=== PATIENT | female | born 1945 | race Caucasian/White ===

== ENCOUNTER → 2016-04-30 | Outpatient (CLI) | payer MEDICARE, BC ==
--- NOTE | 2016-04-30 13:54 | Diagnostic Imaging Report ---
COMPARISON: None available. FINDINGS: This scan is considered normal according to World Health Organization guidelines. Please refer to the detailed Bone Density report faxed separately from this report. Right femur T score -0.2, left femur T score -0.3, AP spine T score 2. IMPRESSION: Normal bone mineralization. Dictated by: Dictated on workstation # [id number]
== END ==
LOC: RAD 12:52
PROVIDERS: ATTEND Family Medicine
DX: Z78.0 Asymptomatic menopausal state (principal); E83.52 Hypercalcemia
CPT/HCPCS: 77080

== ENCOUNTER → 2016-05-05 | Outpatient (CLI) | payer MEDICARE, BC ==
--- NOTE | 2016-05-05 18:58 | Diagnostic Imaging Report ---
INDICATION: Personal history of breast cancer. Digital mammography with computer-assisted detection is performed. Digital mammography with computer-assisted detection is performed. COMPARISON: 10/19/2013, 10/01/2010 Bilateral digital mammography with computer-assisted detection performed. Skin markers were placed at the lumpectomy site. The breasts are heterogeneous and mostly dense. Right breast: Stereotactic biopsy clip is present in the upper-outer right breast. Benign calcification is present with no mass or suspicious finding. Microcalcifications noted medially and superiorly have been stable since the prior exam. Left breast: No dominant mass, suspicious microcalcification, or other significant abnormality is identified. IMPRESSION: 1. Negative for malignancy. Follow-up mammography in one year is recommended. ACR BI-RADS Category 1: Negative Result letter will be mailed to the patient. Note: At least 10% of breast cancer is not imaged by mammography. Dictated by: Dictated on workstation # [id number]
== END ==
LOC: RAD 12:55
PROVIDERS: ATTEND Family Medicine
DX: Z85.3 Personal history of malignant neoplasm of breast (principal)

== ENCOUNTER → 2016-05-13 | Outpatient (CLI) | payer MEDICARE, BC | LOC: RAD 08:15 | PROVIDERS: ATTEND Internal Medicine Hematology & Oncology | DX: Z85.3 Personal history of malignant neoplasm of breast (principal); Z85.038 Personal history of other malignant neoplasm of large intestine; R94.8 Abnormal results of function studies of other organs and systems | CPT/HCPCS: 78306; A9503 ==

== ENCOUNTER → 2016-05-14 | Outpatient (CLI) | payer MEDICARE, BC | LOC: RAD 14:35 | PROVIDERS: ATTEND Family Medicine | DX: M54.16 Radiculopathy, lumbar region (principal); R94.8 Abnormal results of function studies of other organs and systems; M16.0 Bilateral primary osteoarthritis of hip | CPT/HCPCS: 71100; 72100; 72170; 73502 ==

== ENCOUNTER → 2016-06-12 | Outpatient (CLI) | payer MEDICARE, BC ==
[2016-06-12 08:59] LABS: ANION GAP 14.3 MEQ/L (3-15)
== END ==
LOC: RAD 08:14
PROVIDERS: ATTEND Family Medicine
DX: M54.17 Radiculopathy, lumbosacral region (principal); E87.6 Hypokalemia; M48.06 Spinal stenosis, lumbar region
CPT/HCPCS: 36415; 72158; 80048; A9579

== ENCOUNTER 2016-06-23 13:00 | Outpatient (RCR) | payer MEDICARE, BC ==
--- NOTE | 2016-05-23 15:25 | PT/OT/ST INITIAL EVALUATION ---
Department of Health and Human Services Form Approved [facility] Care Financing Administration OMB No. [id number] PLAN OF CARE/ASSESSMENT FOR OUTPATIENT REHABILITATION (Complete for Initial Claims Only) 1. LAST NAME Je FIRST NAME Digna DORSEY S 2. ACC # [id number] 3. [facility] [id number] 4. PROVIDER NO. [id number] 5. TYPE: X PT 6. PRIOR HOSPITALIZATION NA 7. PRIMARY DX M54.16 acute lumbar radiculopathy 8. SECONDARY DX Low back pain, weakness, difficulty walking and abnormal posture. 9. ONSET DATE 02/07/2016 10. REFERRAL DATE 05/14/2016 11. SOC. DATE/TIME 05/21/2016 2:06 p.m. to 2:55 p.m. 12[address] REFERRING PHYSICIAN Dr. Florian Vivas 13. CHARGES PT evaluation moderate complexity 37141 Therapeutic exercise 81219, 1 unit. Manual therapy 28300, 1 unit. 14. G CODES The Oswestry rates the patient as B3990-GB 48% limited and the goal is Q4707-OB 0% limited in order to be able to lift light objects and return to household cleaning with minimal deviation. 15. PRIOR LEVEL OF FUNCTION; PERTINENT HISTORY (Prior therapy results, reason for referral.) S: Prior to therapy the patient consented to today's evaluation and treatment. The patient is a 71-year-old female referred to physical therapy by Dr. Vivas to address functional limitations secondary to acute lumbar radiculopathy that began on 02/07/2016. Mechanism of injury: The patient reports that on 02/07/2016 they were moving from [place] to [place], [place] and she was talking to some friends and bent slightly forward and she was not able to return to an upright position. Since that time, she has been having low back pain with pain down into her right leg, but can go as far down into her calf. She has some pain into her left leg, but it is not as significant and it stays in her buttock and proximal posterior thigh. Primary complaint: Low back pain and right lower extremity pain. Occupational and social history: Retired. Functional performance/Prior level of function: The patient reports that she had no significant issues prior to pain beginning on 02/07/2016. She was moderately active and participated in community activities while living in [place] and has been unable to get out and about since moving to [place] due to pain. The patient rates the current pain level as 9/10 now. The patient describes the pain as a sharp pain and a burning pain. Obstacles to delivery of care: None noted Aggravating factors include sitting or lying down, especially for more than 1 hour. Relieving factors: None Diagnostic testing: None noted. Past medical history includes diabetic, which is controlled; however, she could not continue the steroid taper that was prescribed for her low back issue due to her blood sugars elevating. History of ulcers and stomach problems, history of cancer. The patient has had right and left breast cancer in which she received chemo and radiation in 2003 and then in 2012. The patient had colon cancer in 2006, which part of her colon was removed and she got chemo. Also peripheral neuropathy and high blood pressure. Past surgical history includes having the left great toe amputated due to neuropathy and neck surgery in 2013, which they had anterior incision and removed 2 disks at C5 and 6 and replaced with plastic and a plate. The left and right breast lumpectomy, gallbladder removed, appendectomy, and draining pancreas, hysterectomy, removal of part of the colon and hemorrhoid surgery. Current medications: Tylenol or ibuprofen. Medication list in the chart including metformin, glyburide, Metoprolol, losartan HCT 100, diltiazem, Klor-Con 8 ER, simvastatin, Ranitidine, Pentoxifyll, Lantus, gabapentin. Leisure activities: Includes reading, sewing, crafts and shopping. Activity level: Listed is low to moderate, but more so on the low since she is having pain. Health rating: Overall health rating is fair. The patient's goal for physical therapy includes feeling better and getting rid of most of her pain. 16. INITIAL ASSESSMENT/SAFETY PRECAUTIONS/MEDICAL COMPLICATIONS (Level of function at start of care. Be specific, use objective measures, list problems.) O: APPEARANCE, OBSERVATION AND GAIT: The patient presents to physical therapy with the diagnosis of acute lumbar radiculopathy with pain down into her right lower extremity down to her calf, and at times, into her left buttock and proximal posterior thigh. The patient reports that when she first gets up from sitting or lying down, she needs to use a cane, and then once she gets up and around, she does not need to use a cane. The patient has difficulty rolling over in bed, getting in and out of a car, and going up and down stairs. The patient denies any bowel or bladder changes and no saddle anesthesia. The patent lives with her and has 2 or 3 steps, depending on which door she goes into her home with a railing and no steps inside her house that she has to do, but she does have a basement. In a standing position, the patient's right iliac crest is sitting lower than her left iliac crest. In a supine position, which is difficult for the patient to tolerate for any length of time, the patent presents with a right posterior versus left anterior rotation. The patient was then moved to a seated position to treat with muscle energy technique. In a seated position, the left sacrum appeared to be elevated, as well as her whole left side of her back from the mid thoracic down to her lumbar spine. Hamstring flexibility -The patient is much tighter on the right hamstring, as compared to her left hamstring with the stretching. SPECIAL TESTS: None noted. RANGE OF MOTION/FLEXIBILITY: The patient has limited lumbar range of motion into all planes. The patient has difficulty going from a flexed posture back to an upright posture. STRENGTH: Manual muscle testing of the hips flexion left 4+/5, right 3+/5. Abduction bilateral 3+/5, extension bilateral 3/5. Knee flexion left 3/5, right 3-/5. Knee extension left 3/5, right 3-/5. Ankle plantar flexion bilateral 3+/5, dorsiflexion bilateral 3+/5. TODAY'S TREATMENT: Included the initial PT evaluation followed by manual therapy which consisted of a seated muscle energy technique to correct a right posterior versus left anterior innominate rotation and gentle overpressure to the left sacrum and left side of her back from mid thorax to lumbar spine followed by therapeutic exercise and handouts for home exercise program. 17. INITIAL POC: (Specify procedures, modalities, short and care home goals) A: The patient presents with the diagnosis of acute lumbar radiculopathy with functional limitations of low back pain, weakness, difficulty walking and abnormal posture. The patient is a moderate complexity due to her having a history of cancer and not being able to do ultrasound as a precaution due to the pain being in her low back and her diabetes is not completely stable after it elevated after taking steroid taper. The patient's posture is abnormal with the left side being more posterior than the right side in a seated position. The patient is unable to do much activity due to pain and is limited in her positions that she can get into and out of comfortably and is unable to tolerate a supine position for very long and has limited range of motion. The pain is evolving due to being unable to finish steroid taper and not able to finish all of the medication that the physician prescribed after steroid taper, which she cannot remember the name of. She had 2 pills left to take, but it was leaving her with insomnia, headaches and nausea and she feels that her pain is starting to increase again since she is not taking medication for it. PROGNOSIS: The patient has a fair to good prognosis for increased overall functional capacity with regular therapy attendance and compliance with prescribed home exercise program. The patient would benefit from physical therapy in order to help restore proper alignment through the thoracic and lumbar spine, as well as the pelvic alignment in order to decrease the irritation and to improve strengthening in order to provide her more stability in her low back in order to be able to return to squatting and bending over and lifting light weight without pain. CONTRAINDICATIONS, PRECAUTIONS AND OBSTACLES TO TREATMENT: The patient has a history of cancer and I prefer not to do ultrasound. The patient also has a history of a neck surgery with plastic and plate placed at C5 and 6. GOALS: 1. The patient was rated by the Oswestry as [id number] 48% limited and the goal is Y3304-KR 0% limited in order to be able to return to light household activity and ambulating for more than 15 minutes without deviation. 2. The patient is to have a decrease in pain of the low back and right lower extremity less than or equal to 1/10 in 6 weeks in order to ambulate and light lifting with minimal deviation. 3. The patient is to have an increase in manual muscle testing of bilateral lower extremities to 4/5 in 6 weeks to maintain pelvic and lumbar symmetry and decrease pain for returning to squatting and light lifting with minimal deviation. 4. The patient is to have full lumbar active range of motion in all planes without altered motion in 6 weeks for return to household activity without deviation. 5. The patient is to be independent with a progressive home exercise program. The prognosis and goals were discussed with the patient, as well as the expected outcomes and possible risks. The patient agreed to undergo PT evaluation and further treatment. P: Treatment to include modalities for pain and inflammation, manual therapy interventions, therapeutic exercise, active and passive range of motion, gait training, balance training, neuro reeducation and patient education and prescription of progressive home exercise program as tolerable. The patient is not to have ultrasound at this time. 18. FREQUENCY 2 times a week 19. DURATION 6 weeks 20. FUNCTIONAL LEVEL (End of claim period) 21. PHYSICIAN SIGNATURE ? ON FILE OR ENTER HERE: 22. DATE: I certify the need for these services furnished under this plan of care and if for partial hospitalization. 23. CERTIFICATION FROM THROUGH FORM FA-700
== END 2016-07-21 16:08 | disposition home or self-care (01) ==
LOC: PT 13:00
PROVIDERS: ATTEND Family Medicine
DX: M54.16 Radiculopathy, lumbar region (principal)
CPT/HCPCS: 97110; 97140; 97162; G8978; G8979

== ENCOUNTER → 2016-06-24 | Outpatient (CLI) | payer MEDICARE, BC ==
[~2016-06-24] MED LIST: methylPREDNISolone 80 MG/ML (DEPO MEDROL) VIAL IM ONE
== END ==
LOC: PMC 13:52
PROVIDERS: ATTEND Family Medicine
DX: M51.16 Intervertebral disc disorders with radiculopathy, lumbar region (principal); E11.42 Type 2 diabetes mellitus with diabetic polyneuropathy; I10 Essential (primary) hypertension; Z79.4 Long term (current) use of insulin; Z79.84 Long term (current) use of oral hypoglycemic drugs
CPT/HCPCS: 62323; J1040

== ENCOUNTER → 2016-07-08 | Outpatient (REF) | payer MEDICARE, BC | LOC: LAB 10:25 | PROVIDERS: ATTEND Family Medicine | DX: E11.41 Type 2 diabetes mellitus with diabetic mononeuropathy (principal); E78.2 Mixed hyperlipidemia; E83.52 Hypercalcemia | CPT/HCPCS: 80061; 83036 ==

== ENCOUNTER → 2016-07-10 | Outpatient (CLI) | payer MEDICARE, BC ==
[~2016-07-10] MED LIST changes: +ROPIVACAINE 1% 10 MG/ML (NAROPIN) 10 ML AMPUL ONE; +SODIUM CHLORIDE VIAL (PF) 10 ML IV ONE
== END ==
LOC: PMC 12:55
PROVIDERS: ATTEND Family Medicine
DX: M48.06 Spinal stenosis, lumbar region (principal)
CPT/HCPCS: 62322; J1040; J2795; J7050

== ENCOUNTER → 2016-07-11 | Outpatient (CLI) | payer MEDICARE, BC ==
[2016-07-11 17:11] LABS: CALCIUM URINE MG/DL 5.3 mg/dL
== END ==
LOC: LAB 12:38
PROVIDERS: ATTEND Family Medicine
DX: E83.52 Hypercalcemia (principal)
CPT/HCPCS: 36415; 81050; 82340

== ENCOUNTER → 2016-08-04 | Outpatient (CLI) | payer MEDICARE, BC ==
[~2016-08-04] MED LIST changes: +AC325T PO; +CPR500T PO; +DILT240C53 PO; +GABA800T2 PO; +GLYB5TAB6 PO; +INSU100I35 SQ; +LOSA1TAB70 PO; +METF1000 PO; +MTP50T PO; +NITR100C3 PO; +OMEP20CA12 PO; +ONDA-50 PO; +PENT400T2 PO; +PHEN-639 PO; +POTA8TAB6 PO; +RANI150T11 PO; -ROPIVACAINE 1% 10 MG/ML (NAROPIN) 10 ML AMPUL ONE; +SCR1T1 PO; +SMV10T PO; -SODIUM CHLORIDE VIAL (PF) 10 ML IV ONE; +SULF-221 PO; +ZLP5T PO
--- NOTE | 2016-08-05 08:20 | PAIN MANAGEMENT ---
Date of note: 08/04/2016 Procedure: Epidural steroid injection Fluoroscopy exposure time: 16 seconds This is a 71-year-old female patient under the care of Dr. Brandon Castanon. The patient was referred to anesthesia for the purpose of an epidural steroid injection secondary to lumbar radiculopathy and disk bulge. She complains of pain that radiates down the legs. It follows the L4-5 and L5-S1 dermatome levels. She has received two prior injections by Javier Reese, one at the L4-5 and one at L5-S1. She states that the very first injection was at L4-5 and she got good results from that, however, they were fleeting. She comes back in. Her pain had changed slightly where they decided to go one level below and go to L5-S1 epidural. She states she did not get as much out of that. She comes in today complaining of pain that is similar to the first time she was seen by us and based upon the pain at that point in time, as well as orders received for this injection, we are proceeding forward with an L4-5 epidural steroid injection. The patient is taken to the operating room for the use of fluoroscopic guidance for needle tip placement. She was placed in the left lateral decubitus position. Orders for procedure verified. Patient denies any bleeding tendencies. After informed consent obtained, the patient was positioned for the procedure. The area was prepped and draped using aseptic technique. The patient has an allergy to iodine, so therefore chlorhexidine prep was used. The skin and overlying tissues were localized using 3 mL of 1% Preservative-Free lidocaine using a 25-gauge 1.5-inch needle. A 20-gauge Tuohy needle was advanced, using "loss of resistance" technique, to the epidural space. No blood, cerebral spinal fluid, pain, or paresthesia noted on entry of the epidural space. Depo-Medrol 80 mg for a total of 1 mL was then injected. The needle was then removed. The patient was then able to stand and walk back to the [facility] where she is released with vital signs stable and faculties intact. She is asked to follow up with me via my cellphone in 3 days. The patient states she understands these discharge instructions and I will follow her from there.
== END ==
LOC: PMC 14:52
PROVIDERS: ATTEND Neurological Surgery
DX: M54.16 Radiculopathy, lumbar region (principal); M19.90 Unspecified osteoarthritis, unspecified site; E11.9 Type 2 diabetes mellitus without complications; I10 Essential (primary) hypertension; E78.5 Hyperlipidemia, unspecified; Z79.84 Long term (current) use of oral hypoglycemic drugs
CPT/HCPCS: 62323; J1040

== ENCOUNTER → 2016-08-19 | Outpatient (CLI) | payer MEDICARE, BC ==
[~2016-08-19] MED LIST changes: -AC325T PO; -CPR500T PO; -DILT240C53 PO; -GABA800T2 PO; -GLYB5TAB6 PO; -INSU100I35 SQ; -LOSA1TAB70 PO; -METF1000 PO; -MTP50T PO; -OMEP20CA12 PO; -ONDA-50 PO; -PENT400T2 PO; -POTA8TAB6 PO; -RANI150T11 PO; -SCR1T1 PO; -SMV10T PO; -SULF-221 PO; -ZLP5T PO; -methylPREDNISolone 80 MG/ML (DEPO MEDROL) VIAL IM ONE
[2016-08-19 16:50] VITALS: BP 139/72
--- NOTE | 2016-08-19 16:50 | Urgent Care T Sheet Gen (E) ---
Intake General Temperature (Fahrenheit): 98.6 Pulse: 78 Blood Pressure Systolic: 139 Blood Pressure Diastolic: 72 Respirations: 20 SPO2: 98 Description of Symptoms Patient presents with possible UTI. Patient first noticed symptoms on Thursday. Notes LBP, dysuria, increased voiding frequency and bladder pain. Patient was in [place] at the time. Drove back today and upon arrival back to [facility] felt awful. No recent history of UTI. Patient does have history of lumbar spinal stenosis for which she receives epidural injections so wasn't sure if the pain was from her back or some place else. No fever. Took AZO 2 days ago. Respiratory Constitutional Symptoms: No syptoms reported EENTM: No symptoms reported Respiratory: No symptoms reported Cardiovascular: No symptoms reported Genitourinary: Dysuria Decreased output Frequency Hematuria Pain All Other Systems Reviewed Remaining Systems: All other systems reviewed with negative findings Physical Exam Physical Exam General Appearance: WD/WN No apparent distress Respiratory Exam: Lungs clear Normal breath sounds Cardiovascular Exam: Regular rate, rhythm GI/ Exam: Tenderness (suprapubic) Back Exam: CVA tenderness (R) CVA tenderness (L) Progress/Orders Lab Results Labs Results: UA UA Lab Results ph 5.0 Specific [place] 1.015 Protein 1+ Ketones - Blood - Nitrates + Leukocyte Esterase 2+ Departure Urgent Care Impression Impression: Primary Impression: UTI (urinary tract infection) Qualified Code: N30.00 - Acute cystitis without hematuria Departure Disposition: 01 HOME OR SELF-CARE Condition: Stable Referrals: RITA AMANDA MD (PCP) Additional Instructions: I wanted to use a stronger med such as Bactrim or Cipro, however with her several daily meds, I wasn't able due to interactions. I did start her on Macrobid for treatment. I have also prescribed Pyridium for pain Rest. Fluids Return as needed I have sent her urine out for culture, will call once results are known Patient understands DC instructions. All questions were answered. Scripts Phenazopyridine HCl (Pyridium)100 Mg [id number] Mg PO TID PRN PAIN #6 TAB Ref 0 Prov:ELA HOLLOWAY 08/19/16 Nitrofurantoin/Nitrofuran Mac (Macrobid)100 Mg [id number] Mg PO BID Infection # 14 CAP Ref 0 Prov:ELA HOLLOWAY 08/19/16 End of report . ELA HOLLOWAY August 19, 2016 16:50
--- NOTE | 2016-08-22 13:43 | Urgent Care Follow Up Note (E) ---
Urgent Care Follow Up Note Called patient to discuss urine culture results. It grew out gram negative bacillus however susceptibility wasn't performed (reason wasn't given). Patient states she is doing better today on the Macrobid, yesterday was a little rough. She thinks she is doing better. I offered to switch to a different med, however she opted to give it more time. If no better tomorrow, she may call before noon and at that time I will switch to a different med. All questions were answered. Scripts Phenazopyridine HCl (Pyridium)100 Mg [id number] Mg PO TID PRN PAIN #6 TAB Ref 0 Prov:ELA HOLLOWAY 08/19/16 Nitrofurantoin/Nitrofuran Mac (Macrobid)100 Mg [id number] Mg PO BID Infection # 14 CAP Ref 0 Prov:ELA HOLLOWAY 08/19/16 ELA HOLLOWAY August 22, 2016 13:43
== END ==
LOC: MHUC 16:21
PROVIDERS: ATTEND Physician Assistant
DX: N30.00 Acute cystitis without hematuria (principal)
CPT/HCPCS: 81002; 99213

== ENCOUNTER 2016-08-27 16:19 | Outpatient (CLI) | payer MEDICARE, BC ==
[2016-08-27] MEDS ORDERED: NS FLUSH 3 ML PRN IV (16:35)
--- NOTE | 2016-08-27 16:40 | NUR ---
Admit to room 343 per w/c with accompanying - to bed "I feel whoozy" -requesting saltine crackers - "haven't had anything to eat all day"
--- NOTE | 2016-08-27 16:45 | NUR ---
Orders faxed to pharmacy
[2016-08-27 17:00] VITALS: BP 136/62
--- NOTE | 2016-08-27 17:15 | NUR ---
IV started in LAC X1 attempt c aseptic technique - NS to infuse @ 999 mL/hr - @ bedside - diet eamon served
--- NOTE | 2016-08-27 18:30 | NUR ---
Dismissed per w/c by Jahaira Scanlon RN c to drive patient home
--- NOTE | 2016-08-27 18:39 | NUR ---
NS IV infused - IV DC'd from RAC - pressure held until bleeding stopped - drsg applied
== END 2016-08-27 18:30 | disposition home or self-care (01) ==
LOC: EUOP 16:19 → ICU 16:45 → EUOP 18:30
PROVIDERS: ATTEND Physician Assistant Surgical
DX: E86.0 Dehydration (principal)
CPT/HCPCS: 96360; 96366; J7030

== ENCOUNTER → 2016-08-27 | Outpatient (REF) | payer MEDICARE, BC ==
[~2016-08-27] MED LIST changes: +SULF-221 PO
[2016-08-27 15:00] LABS: BILIRUBIN,URINE Negative (Negative); CLARITY,URINE Clear; COLOR,URINE Yellow; GLUCOSE, URINE (UA) Negative (Negative); LEUKOCYTE ESTERASE ,URINE Negative (Negative); UROBILINOGEN,URINE 0.2 mg/dL (0.2-1.0)
[2016-08-27 15:31] LABS: BASOPHILS % (AUTO) 1 % (0-2); EOSINOPHILS # (AUTO) 0.1 10^3uL; EOSINOPHILS % (AUTO) 2 % (0-4); LYMPHOCYTES # (AUTO) 1.4 X10^3; MEAN CORPUSCULAR HEMOGLOBIN 31.1 PG (26.0-34.0); MEAN CORPUSCULAR HGB CONC 35.5 g/dL (31.0-37.0); MEAN CORPUSCULAR VOLUME 88 FL (80-100); MEAN PLATELET VOLUME 9.9 FL (6.0-9.5); MONOCYTES # (AUTO) 0.8 X10^3; MONOCYTES % (AUTO) 14 % (3-11); NEUTROPHILS # (AUTO) 3.7 X10^3; NEUTROPHILS % (AUTO) 62 % (51-67); PLATELET COUNT 194 10^3uL (150-450); WHITE BLOOD COUNT 5.97 10^3uL (4.0-11.0)
[2016-08-27 15:36] LABS: ALBUMIN 4.1 g/dL (3.4-5.0); ANION GAP 18.5 MEQ/L (3-15); CALCULATED IONIZED CALCIUM 4.9 mg/dL (3.8-4.6); TOTAL PROTEIN 6.3 g/dL (6.4-8.5)
== END ==
LOC: LAB 14:49
PROVIDERS: ATTEND Physician Assistant Surgical
DX: R53.83 Other fatigue (principal); R42 Dizziness and giddiness; R30.0 Dysuria
CPT/HCPCS: 80053; 81003; 85025

== ENCOUNTER → 2016-08-28 | Outpatient (CLI) | payer MEDICARE, BC ==
[~2016-08-28] VITALS: Ht 167.6 cm; Wt 74.8 kg
[~2016-08-28] MED LIST changes: +SODIUM CHLORIDE FLUSH 3 ML SYR IV SCH
[2016-08-28 16:49] VITALS: BP 149/68
== END ==
LOC: EUOP 15:19
PROVIDERS: ATTEND Family Medicine
DX: E86.0 Dehydration (principal); N39.0 Urinary tract infection, site not specified
CPT/HCPCS: 36000; 96360; 96361; J7030

== ENCOUNTER → 2016-09-04 | Outpatient (CLI) | payer MEDICARE, BC ==
[~2016-09-04] MED LIST changes: +AC325T PO; +CPR500T PO; +DILT240C53 PO; +GABA800T2 PO; +GLYB5TAB6 PO; +INSU100I35 SQ; +LOSA1TAB70 PO; +METF1000 PO; +MTP50T PO; +OMEP20CA12 PO; +ONDA-50 PO; +PENT400T2 PO; +POTA8TAB6 PO; +RANI150T11 PO; +SCR1T1 PO; +SMV10T PO; -SODIUM CHLORIDE FLUSH 3 ML SYR IV SCH; +ZLP5T PO
[2016-09-04 19:28] VITALS: BP 129/79
--- NOTE | 2016-09-04 19:28 | Urgent Care T Sheet Gen (E) ---
Intake General Temperature (Fahrenheit): 98.0 Pulse: 71 Blood Pressure Systolic: 129 Blood Pressure Diastolic: 79 Respirations: 26 SPO2: 97 Description of Symptoms Patient presents with nausea and vomiting which started suddenly this afternoon. Patient states this evening when she vomited, it was the alfredo she ate at breakfast. patient was seen and treated for UTI on August 19. She was first started on Macrobid but was switched to Bactrim. Patient followed up with PCP last week and states her UA recheck was fine. Patient's son in law, who is a RN, is concerned about sepsis. Patient denies any fever but states her urine "looks funny today". No meds to treat her symptoms. Patient received IV fluids twice last week for dehydration. History of Present Illness Allergies: Coded Allergies: iodine (Verified Allergy, Mild, 08/27/16) Penicillins (Verified Allergy, Unknown, 08/27/16) codeine (Verified Allergy, Unknown, 08/27/16) latex (Verified Allergy, Unknown, 08/27/16) Home Meds Discontinued Scripts Sulfamethoxazole/Trimethoprim (Sulfamethoxazole/Trimethoprim DS 800mg/160mg)1 Each Tablet1 Each PO BID #6 TAB Prov:ELA HOLLOWAY 08/23/16 Phenazopyridine HCl (Pyridium)100 Mg [id number] Mg PO TID PRN PAIN #6 TAB Ref 0 Prov:ELA HOLLOWAY 08/19/16 Nitrofurantoin/Nitrofuran Mac (Macrobid)100 Mg Eqdnper803 Mg PO BID Infection # 14 CAP Ref 0 Prov:ELA HOLLOWAY 08/19/16 Respiratory Constitutional Symptoms: Weakness EENTM: No symptoms reported Respiratory: No symptoms reported Cardiovascular: No symptoms reported Gastrointestinal/Abdominal: Nausea Vomiting Genitourinary: Dysuria Pain All Other Systems Reviewed Remaining Systems: All other systems reviewed with negative findings Past Ayuycbm-Rmjcmv-Jijcod Hx Patient's Social History Alcohol Use: Denies Use Smoking Status: Never smoker Cancer History of Cancer?: Yes Cancer type: breast Physical Exam Physical Exam General Appearance: WD/WN Mild distress (patient is very nauseous and appears ill) Eyes, Ears, Nose, Throat Ex: Pharynx normal Respiratory Exam: Lungs clear (patient's tachypnea leveled out after sitting and talking) Normal breath sounds Cardiovascular Exam: Regular rate, rhythm GI/ Exam: Tenderness (epigastric and suprapubic)No Guarding, No Rebound Progress/Orders Lab Results Labs Results: UA UA Lab Results ph 6.0 Specific [place] 1.015 Protein trace Ketones trace Blood trace Nitrates + Leukocyte Esterase moderate Medications Administered Medications Adminstered: Zofran 4mg ODT (Lot [id number] Exp 04/2017) Departure Urgent Care Impression Impression: Primary Impression: UTI (urinary tract infection) Qualified Code: N30.01 - Acute cystitis with hematuria Additional Impression: Nausea & vomiting Qualified Code: R11.2 - Nausea with vomiting, unspecified Departure Disposition: HOME OR SELF-CARE Condition: Stable Referrals: RITA AMANDA MD (PCP) Additional Instructions: The patient appears to have another UTI, which could still be from her original infection. I called [facility] pharmacy to discuss medication options as the patient is diabetic and takes several daily meds. Pharmacist said Cipro was safe to use. I have started her on Cipro 500mg daily x 5 days I have also prescribed Zofran 4mg tabs po q 4-6 hrs prn nausea. The patient took a dose in clinic and noticed improvement Once her nausea gets under control, instructed the patient to focus on fluids so that she doesn't get dehydrated like last week and require IV fluids Return as needed. I will call once urine culture results are known. Patient understands DC instructions. All questions were answered. End of report . ELA HOLLOWAY September 04, 2016 19:28
--- NOTE | 2016-09-08 11:57 | Urgent Care Follow Up Note (E) ---
Urgent Care Follow Up Note Urine culture showed E.coli and was susceptible to Cefazolin, Ceftriaxone, Cipro , gentamicin, nitrofurantoin ELA HOLLOWAY September 08, 2016 11:57
== END ==
LOC: MHUC 18:42
PROVIDERS: ATTEND Physician Assistant
DX: N30.01 Acute cystitis with hematuria (principal); R11.2 Nausea with vomiting, unspecified; B96.20 Unspecified Escherichia coli [E. coli] as the cause of diseases classified elsewhere
CPT/HCPCS: 81002; 99213

== ENCOUNTER 2016-09-05 16:08 | Inpatient (IN) | payer MEDICARE, BC ==
[~2016-09-05] VITALS: Ht 162.6 cm; Wt 68.4 kg
[~2016-09-05 16:08] MED LIST changes: -AC325T PO; -CPR500T PO; -DILT240C53 PO; -GABA800T2 PO; -GLYB5TAB6 PO; -INSU100I35 SQ; -LOSA1TAB70 PO; -METF1000 PO; -MTP50T PO; -OMEP20CA12 PO; -ONDA-50 PO; -PENT400T2 PO; -POTA8TAB6 PO; -RANI150T11 PO; -SCR1T1 PO; -SMV10T PO; -ZLP5T PO
--- NOTE | 2016-09-05 16:33 | NUR ---
Patient report has been received from Triage Nurse. This nurse now assumes care of patient.
[2016-09-05] MEDS ORDERED: SODIUM CHLORIDE FLUSH 3 ML SYR IV ONE (16:40)
[2016-09-05] MEDS ORDERED: SODIUM CHLORIDE FLUSH 10 ML SYR IV PRN (16:40)
[2016-09-05] MEDS ORDERED: fentaNYL 100 MCG/2 ML VIAL IV ONE ×2 (16:40→19:20)
[2016-09-05] MEDS ORDERED: ONDANSETRON 2 MG/ML (Z0FRAN) 2 ML VIAL IV ONE (16:40)
[2016-09-05 17:02] LABS: BASOPHILS % (AUTO) 0 % (0-2); EOSINOPHILS % (AUTO) 1 % (0-4); MEAN CORPUSCULAR HEMOGLOBIN 30.5 PG (26.0-34.0); MEAN CORPUSCULAR VOLUME 85 FL (80-100); MEAN PLATELET VOLUME 9.4 FL (6.0-9.5); MONOCYTES # (AUTO) 0.8 X10^3; MONOCYTES % (AUTO) 15 % (3-11); NEUTROPHILS # (AUTO) 3.4 X10^3; NEUTROPHILS % (AUTO) 65 % (51-67); PLATELET COUNT 232 10^3uL (150-450); WHITE BLOOD COUNT 5.24 10^3uL (4.0-11.0)
[2016-09-05 17:09] LABS: ALBUMIN 4.4 g/dL (3.4-5.0); ALKALINE PHOSPHATASE 60 U/L (38-126); ANION GAP 15.5 MEQ/L (3-15); BUN/CREATININE RATIO 16 (10-20); CALCULATED IONIZED CALCIUM 4.5 mg/dL (3.8-4.6); LIPASE* 84 U/L (23-300)
--- NOTE | 2016-09-05 17:14 | NUR ---
Patient is allergic to iodine, complains of lon-area irritation with wipes pre-cath. Cleansed with lon-wash spray and warm washcloth post procedure.
[2016-09-05 17:37] LABS: BILIRUBIN,URINE Negative (Negative); CLARITY,URINE Clear; COLOR,URINE Yellow; GLUCOSE, URINE (UA) Negative (Negative); LEUKOCYTE ESTERASE ,URINE Trace (Negative); UROBILINOGEN,URINE 0.2 mg/dL (0.2-1.0)
[2016-09-05 17:39] LABS: URINE CENTRIFUGED VOLUME <10mL Unspun
[2016-09-05 17:42] LABS: RBC,URINE 0-2 /HPF
--- NOTE | 2016-09-05 18:10 | NUR ---
Assisted to toilet, voided, small brown loose stool.
--- NOTE | 2016-09-05 19:27 | Diagnostic Imaging Report ---
CLINICAL INDICATION: Patient with abdominal pain. EXAMS: X-ray of the chest PA view and x-ray of the abdomen supine and upright views. COMPARISONS: None. FINDINGS: LUNGS/ PLEURA: Lungs are clear. There is no pneumothorax. There is no pleural effusion. MEDIASTINUM: Unremarkable. PULMONARY VASCULATURE: Unremarkable. HEART: Unremarkable. BONES/ EXTRATHORACIC SOFT TISSUE: There are hypertrophic spurs seen throughout the thoracic and lumbar spine. There are surgical clips overlying the bilateral axillary regions. There is lower cervical spine anterior disc fusion hardware seen. ABDOMEN AND PELVIS: Unremarkable x-ray of the abdomen with nonobstructed bowel gas pattern. There is no evidence of abdominal free air. There are no focal calcifications overlying the expected regions/ pathways of both kidneys, ureters, and bladder regions. IMPRESSION: 1: There is no radiographic evidence of acute cardiopulmonary process. 2: There is no radiographic evidence of acute abdominal or pelvic process. Dictated by: Dictated on workstation # [id number]
--- NOTE | 2016-09-05 19:57 | Diagnostic Imaging Report ---
CLINICAL INDICATION: Patient with left lower quadrant abdominal pain and vomiting. EXAM: CT scan of the abdomen and pelvis performed without IV enteric contrast. Coronal and sagittal reformatted images are created. COMPARISON: X-ray of the abdomen dated 09/05/2016. FINDINGS: There is minimal atelectasis involving both lung bases. There are moderately hypertrophic spurs involving both acetabular regions. There is bony excrescence involving the left iliac which appears chronic. There are degenerative spurs of the lower thoracic and lumbar spine. There is lower lumbar spine facet arthropathy. The pancreas is atrophic with some fatty replacement seen. The gallbladder is not visualized and may be surgically resected. The liver, pancreas, and adrenal glands are unremarkable. There is a 13 mm partially exophytic high-density lesion involving the lateral and inferior aspect of the right kidney with Hounsfield units of 36. Both kidneys have lobulated contours. There is nonspecific calcification of the cortex region of the mid to upper left kidney. There are subtle low-density areas involving the left kidney. Cyst may be considered. There are no urinary tract stones. There is no hydronephrosis. There are postop changes with surgical anastomosis in the sigmoid colon low pelvis region. Otherwise, the colon, small bowel, and stomach show no significant abnormality. There is no intra-abdominal free air or free fluid. There is no significant abdominal lymphadenopathy or pelvic lymphadenopathy. The bladder is partially fluid distended with no gross abnormality seen. The uterus is surgically absent. The bilateral adnexal regions are atrophic with calcification seen in the region. There are phleboliths seen in the pelvis. The appendix is not visualized and may be surgically resected. The abdominal aorta is normal caliber with mild atherosclerotic disease. The extra-abdominal and extrapelvic soft tissue structures are unremarkable. Chronic-appearing compression deformity of the posterior upper endplate of the L1 vertebral body. IMPRESSION: 1: There is no CT evidence of acute abdominal or pelvic process. 2: Indeterminate exophytic 13 mm right kidney lesion. There is also lobulated appearance of both kidneys with low-density areas within the left kidney. Nonemergent CT scan of both kidneys with contrast is suggested for further evaluation. If patient cannot have IV contrast, then MRI of the kidneys would better evaluate. 3: Atrophy of the pancreas. 4: Postop changes to the abdomen and pelvis region with no acute process. Dictated by: Dictated on workstation # [id number]
[2016-09-05] MEDS ORDERED: DILT240C53 PO (19:59)
[2016-09-05] MEDS ORDERED: LOSA1TAB70 PO (19:59)
[2016-09-05] MEDS ORDERED: POTA8TAB6 PO (19:59)
[2016-09-05] MEDS ORDERED: OMEP20CA12 PO (19:59)
[2016-09-05] MEDS ORDERED: CPR500T PO (19:59)
[2016-09-05] MEDS ORDERED: PENT400T2 PO (19:59)
[2016-09-05] MEDS ORDERED: METF1000 PO (19:59)
[2016-09-05] MEDS ORDERED: GLYB5TAB6 PO (19:59)
[2016-09-05] MEDS ORDERED: ZLP5T PO (19:59)
[2016-09-05] MEDS ORDERED: RANI150T11 PO (19:59)
[2016-09-05] MEDS ORDERED: MTP50T PO (19:59)
[2016-09-05] MEDS ORDERED: INSU100I35 SQ (19:59)
[2016-09-05] MEDS ORDERED: SMV10T PO (19:59)
[2016-09-05] MEDS ORDERED: GABA800T2 PO ×2 (19:59)
[2016-09-05] MEDS ORDERED: ONDA-50 PO (19:59)
[2016-09-05] MEDS ORDERED: LEVOFLOXACIN 500 MG/100 ML IV 100 ML IV ONE (20:05)
[2016-09-05] MEDS ORDERED: NS IV 500 ML 500 ML IV SCH (20:05)
--- NOTE | 2016-09-05 20:34 | NUR ---
oxygen equipment technician here for blood draw. IVAB infusion stopped until clinical lab specialist finishes draw.
--- NOTE | 2016-09-05 20:39 | NUR ---
HAVE EXPLAINED TO PT AND SPOUSE THAT THERE WILL BE APPPROX 30 DELAY BEFORE MED-SURG RECEIVING NURSE WILL BE AVAILABLE TO RECEIVE REPORT AND ACCEPT PT FOR ADMISSION. PT AND SPOUSE VERBALIZE UNDERSTANDING.
--- NOTE | 2016-09-05 20:45 | NUR ---
IVAB INFUSION RESUMED.
--- NOTE | 2016-09-05 21:00 | NUR ---
Pt states, "I feel a lot better than when I came in". Currently rates abdominal discomfort at "3-4" and denies nausea. IVF infusing well per pump.
--- NOTE | 2016-09-05 21:15 | NUR ---
NS 500 ml bolus non-admin d/t Dr. Dennison okaying 500 ml bolus coming out of original NS 1000 ml that was currently hanging. Did advise receiving RN on Med-Surg that ED doc had okay'd this. IVAB that had originally started as concurrent infusion, then stopped while NS bolus completed, was resumed as soon as bolus completed. IVAB infusing at 100 ml per hour upon admission to 3rd floor and NS infusing at 100 ml/hr.
[2016-09-05] MEDS ORDERED: METOCLOPRAMIDE 10 MG/2 ML (REGLAN) VIAL IV PRN (21:25)
[2016-09-05] MEDS ORDERED: fentaNYL 100 MCG/2 ML VIAL IV PRN (21:25)
[2016-09-05] MEDS ORDERED: PROMETHAZINE HCL INJ 12.5 MG in SODIUM CHLORIDE 25 ML IV PRN (21:25)
[2016-09-05] MEDS ORDERED: ONDANSETRON 2 MG/ML (Z0FRAN) 2 ML VIAL IV PRN (21:25)
--- NOTE | 2016-09-05 21:35 | NUR ---
Pt arrived to room 301 via cart, is accompanied by Humaira RN and family. Pt is assisted to bed by 2 staff members, is steady on her feet. Currently rating pain 5/10, IV is infusing without difficulty, no redness, swelling, or s/s of infection noted at this time. Reports pain to left upper quadrant, and burning with urination. See admission assessment for further information. Call light is in reach, will continue to monitor.
[2016-09-05 21:37] VITALS: BP 186/86
[2016-09-05 21:38] VITALS: BP 186/86
[2016-09-05] MEDS ORDERED: [UNRECOGNIZED DRUG - OTHER] PO SCH (21:50)
[2016-09-05] MEDS ORDERED: LOSARTAN PO SCH (21:50)
[2016-09-05] MEDS ORDERED: HYDROCHLOROTHIAZIDE PO SCH (21:50)
--- NOTE | 2016-09-05 22:01 | History and Physical (E) ---
History & Physical PCP: Florian Somers MD CC- UTI HPI- 71 yo F with PMH of UTI that has lasted for 3 weeks presened to the ED with reports of increased N/V and weakness for the past 3 days. She was seen at her PCP's office today and could not give a clean catch urine. She was sent to the ED for a straight cath. She reports symptoms of urgency, frequency and dysuria. She reports chills at home. She has taken one round of bactrim DS and one round of macrobid for her UTI. She was seen at urgent care last night and given 1 dose of cipro. She does not know if her urine CX has resulted anything. She was found to be dehydrated in the ED and unable to keep her ABX down. She also reports increased achy abdominal pain in her upper abdomen and LUQ. She denies diarrhea, but reports [address] was negative for infection, did show a mass on her kidney that will need follow up. She was admitted for further evaluation. PMH- IDDM, HTN. HLD. A. Fib PSH- B/L lumpectomy, Colon CA surgery ALLERGIES: Please see list at end of report. HOME MEDICATIONS: Please see list at end of report. FH- non contributory SH- retired, no smoking or alcohol use ROS CONSTITUTION: Denies weight loss or gain. Denies fever or chills. HEENT: No change in vision or hearing. No sores in mouth, sore throat. CV: No chest pain, palpitations. PULM: No cough, shortness of breath, difficulty breathing. GI: No upset stomach, nausea, vomiting, constipation, or diarrhea. No blood in stool. : No dysuria. No blood in urine. MS: No new muscle or joint aches and pains. NEURO: No numbness or tingling. No weakness. INTEG: No rashes, lesions, or sores. ENDO: No heat or cold intolerance. No polydipsia or polyuria. HEME/LYMPH: No easy bruising or bleeding. No swollen glands. PSYCH: No change in mood or behavior. OBJECTIVE GEN: Awake, alert, oriented, NAD HEENT: EOMI, PERRL, moist oral mucosa. CV: RRR S1 S2 normal with no murmur LUNGS: CTA B ABD: Soft, TTP LUQ with normal bowel sounds. EXTR: No C/C/E. Normal peripheral pulses. INTEG: No rash. NEURO: No focal motor neuro deficit. Weight: 68.4 kg LABS- reviewed MICRO- pending IMAGING ASSESSMENT UTI Abdominal pain kidney mass PLAN Start IV levaquin, Supportive care for N/V with antiemetics. Fentanyl and Tylenol for pain. Blood CX and urine CX sent. IV NS at 100cc/hr overnight. Continue to monitor and give supportive care. Allergies/Home Medications Allergies: Coded Allergies: iodine (Verified Allergy, Mild, 08/27/16) Penicillins (Verified Allergy, Unknown, 08/27/16) codeine (Verified Allergy, Unknown, 08/27/16) latex (Verified Allergy, Unknown, 08/27/16) Reported Home Medications Scheduled Ciprofloxacin HCl (Cipro) 1 TAB PO DAILY (Reported) Diltiazem HCl (Cartia XT) 1 TAB PO daily in am (Reported) Gabapentin (Gabapentin) 1 TAB PO AM AND NOON (Reported) Gabapentin (Gabapentin) 2 TAB PO HS (Reported) Glyburide (Glyburide) 2 TAB PO BID (Reported) Insulin Glargine,Hum.rec.anlog (Basaglar Kwikpen U-100) 40 UNITS SQ HS (Reported ) Losartan/Hydrochlorothiazide (Losartan-HCTZ 100-25 mg Tab) 1 TAB PO DAILY IN AM (Reported) Metformin HCl (Metformin HCl) 1 TAB PO BID (Reported) Metoprolol Tartrate (Metoprolol Tartrate) 1 TAB PO BID (Reported) Omeprazole (Omeprazole) 1 CAP PO daily in am (Reported) Pentoxifylline (Pentoxifylline) 1 TAB PO TID (Reported) Potassium Chloride (Potassium Chloride) 1 TAB PO DAILY IN AM (Reported) Ranitidine HCl (Ranitidine HCl) 1 TAB PO daily in am (Reported) Simvastatin (Simvastatin) 1 TAB PO HS (Reported) Zolpidem Tartrate (Zolpidem Tartrate) 1 TAB PO HS (Reported) Scheduled PRN Ondansetron HCl (Ondansetron HCl) 1 TAB PO Q4HR PRN PRN PRN NAUSEA (Reported) Copies to: End of Report . CLAYTON DELEON MD September 05, 2016 22:01
[2016-09-05] MEDS ORDERED: PROMETHAZINE 25 MG/ML (PHENERGAN) 1 ML VIAL ONE (22:29)
[2016-09-05] MEDS ORDERED: SODIUM CHLORIDE 25 ML IV ONE (22:29)
[2016-09-05] MEDS: morphine INJ 4 MG/ML 1 ML SYRINGE IV PRN (22:56)
--- NOTE | 2016-09-05 23:04 | NUR ---
2250-Spoke with Dr. Jackson regarding pain medication. Received order to give Morphine 4mg IV q 4hrs PRN pain. Pt is currently rating pain at 10/10 and complaining of nausea. 0-Gave Morphine 4mg SIVP for discomfort, and Phenergan 12.5mg IVPB for nausea. Will continue to monitor.
[2016-09-06] VITALS (7 sets, daily range): BP systolic 125–156; BP diastolic 57–80
--- NOTE | 2016-09-06 04:16 | NUR ---
Pt has been resting in bed asleep most of this shift, does not appear in pain or discomfort at this time. Will continue to monitor.
[2016-09-06 06:04] LABS: MEAN CORPUSCULAR HEMOGLOBIN 30.9 PG (26.0-34.0); MEAN CORPUSCULAR VOLUME 88 FL (80-100); MEAN PLATELET VOLUME 9.8 FL (6.0-9.5); PLATELET COUNT 232 10^3uL (150-450); WHITE BLOOD COUNT 5.01 10^3uL (4.0-11.0)
[2016-09-06 06:14] LABS: BAND NEUTROPHILS % 2 % (0-6); EOSINOPHILS % 0 % (0-4); LYMPHOCYTES # 1.7 #; MONOCYTES # 0.1 #; MONOCYTES % 2 % (3-11); SEGMENTED NEUTROPHILS % 63 % (51-67); TOTAL CELLS COUNTED 100
[2016-09-06 06:15] LABS: RBC MORPH NORMAL (NORMAL)
[2016-09-06 06:34] LABS: ANION GAP 12.8 MEQ/L (3-15)
[2016-09-06] MEDS ORDERED: NS FLUSH 10 ML PRN IV (07:55)
[2016-09-06] MEDS ORDERED: NS FLUSH 3 ML PRN IV (07:55)
[2016-09-06] MEDS: morphine INJ 4 MG/ML 1 ML SYRINGE IV PRN (07:59)
--- NOTE | 2016-09-06 08:30 | NUR ---
Pt awake/alert/oriented x4. Requested pain medicine for 4/10 lower pelvic pain- Morphine 4mg IV given now. Zofran 4mg IV given at that same time to prevent nausea with breakfast. Ate only 1/2 banana and drank juice cup. IVF infusing as ordered without difficulty.
[2016-09-06] MEDS ORDERED: PANTOPRAZOLE 40 MG (PROTONIX) TAB PO SCH (08:31)
[2016-09-06] MEDS: HYDROCHLOROTHIAZIDE 25 MG (HCTZ) TAB PO SCH (08:54)
[2016-09-06] MEDS: glyBURIDE 5 MG (MICRONASE) TAB PO SCH ×2 (08:55→17:18)
[2016-09-06] MEDS: meTOprolol TARTRATE 50 MG (LOPRESSOR) TABLET PO SCH ×2 (08:55→20:40)
[2016-09-06] MEDS: DILTIAZEM CD 240 MG (CARDIZEM CD) CAP PO SCH (08:55)
[2016-09-06] MEDS: LOSARTAN 100 MG (COZAAR) TABLET PO SCH (08:56)
[2016-09-06] MEDS: POTASSIUM CHLORIDE 8 MEQ PO SCH (08:57)
[2016-09-06] MEDS: GABAPENTIN 400 MG (NEURONTIN) CAP PO SCH ×3 (08:57→20:40)
[2016-09-06] MEDS: metFORMIN 500 MG (GLUCOPHAGE) TABLET PO SCH ×2 (08:59→17:18)
[2016-09-06] MEDS ORDERED: PENTOXIFYLLINE 400 MG (TRENtal) TAB PO SCH (09:00)
[2016-09-06] MEDS ORDERED: FAMOTIDINE 20 MG (PEPCID) TABLET PO SCH (09:00)
[2016-09-06] MEDS: NS FLUSH 3 ML DAILY IV SCH (09:00)
--- NOTE | 2016-09-06 09:06 | NUR ---
Pt sitting on edge of bed, took AM meds without difficulty. Is waiting to take a shower for a few minutes. at bedside.
--- NOTE | 2016-09-06 09:28 | NUR ---
@ 2046-Pt ambulated to shower with 1 SBA. Showered indep.- became SOA with this activity- Sats 100% RA, RR 24, HR 114. Notified Dr. Tyson, ordered to cont to monitor and if HR stays high repeat EKG. Will cont to monitor patient.
--- NOTE | 2016-09-06 09:50 | NUR ---
Pt resting in chair eating toast and oatmeal. She is still somewhat SOA, O2 sats 98%, HR 84 and RR 22.
--- NOTE | 2016-09-06 09:51 | Progress Note-A/P (E) ---
Progress Note Subjective Subjective burnling and pain acute suprapubic area recurrent Current Medications Sodium Chloride 1,000 ml @ 100 mls/hr Q10H IV Last administered on 09/06/16 07 :26; Admin Dose 100 MLS/HR; Start 09/05/16 at 21:25 Acetaminophen 650 mg Q6H PRN PO; Start 09/05/16 at 21:25 Ondansetron HCl 4 mg Q6H PRN IV Last administered on 09/06/16 07:59; Admin Dose 4 MG; Start 09/05/16 at 21:25 Metoclopramide HCl 10 mg Q6H PRN IV; Start 09/05/16 at 21:25 Diltiazem HCl 240 mg DAILY PO Last administered on 09/06/16 08:55; Admin Dose 240 MG; Start 09/06/16 at 09:00 Metoprolol Tartrate 50 mg BID PO Last administered on 09/06/16 08:55; Admin Dose 50 MG; Start 09/06/16 at 09:00 Gabapentin 800 mg BID@08,12 PO Last administered on 09/06/16 08:57; Admin Dose 800 MG; Start 09/06/16 at 08:30 Gabapentin 1,600 mg HS PO; Start 09/06/16 at 21:00 Non-Formulary Medication 40 units HS SQ; Start 09/06/16 at 21:00; Status UNV Potassium Chloride 8 meq DAILY PO Last administered on 09/06/16 08:57; Admin Dose 8 MEQ; Start 09/06/16 at 09:00 Famotidine 20 mg DAILY PO Last administered on 09/06/16 08:55; Admin Dose 20 MG ; Start 09/06/16 at 09:00 Sodium Chloride 3 ml DAILY IV; Start 09/06/16 at 09:00 Sodium Chloride 3 ml UD PRN IV; Start 09/06/16 at 07:55 Sodium Chloride 10 ml UD PRN IV; Start 09/06/16 at 07:55 Losartan Potassium 100 mg DAILY PO Last administered on 09/06/16 08:56; Admin Dose 100 MG; Start 09/06/16 at 09:00 Hydrochlorothiazide 25 mg DAILY@0900 PO Last administered on 09/06/16 08:54; Admin Dose 25 MG; Start 09/06/16 at 09:00 Objective VS Vital Signs Date Time Temp Pulse Resp B/P Pulse Ox O2 Delivery O2 Flow Rate FiO2 09/06/16 07:56 97.0 94 18 146/76 98 09/06/16 03:52 Room air I&O I & O Cumulative 09/05/16 09/06/16 Cumulative From/Thru 19:00 07:00 09/05/16 16:15 - 09/06/16 06:03 Intake Total 785 ml 785 ml Output Total 1800 ml 1800 ml Balance -1015 ml -1015 ml Current Medications Current Medications Sodium Chloride 1,000 ml @ 100 mls/hr Q10H IV Last administered on 09/06/16 07 :26; Admin Dose 100 MLS/HR; Start 09/05/16 at 21:25 Acetaminophen 650 mg Q6H PRN PO; Start 09/05/16 at 21:25 Ondansetron HCl 4 mg Q6H PRN IV Last administered on 09/06/16 07:59; Admin Dose 4 MG; Start 09/05/16 at 21:25 Metoclopramide HCl 10 mg Q6H PRN IV; Start 09/05/16 at 21:25 Diltiazem HCl 240 mg DAILY PO Last administered on 09/06/16 08:55; Admin Dose 240 MG; Start 09/06/16 at 09:00 Metoprolol Tartrate 50 mg BID PO Last administered on 09/06/16 08:55; Admin Dose 50 MG; Start 09/06/16 at 09:00 Gabapentin 800 mg BID@08,12 PO Last administered on 09/06/16 08:57; Admin Dose 800 MG; Start 09/06/16 at 08:30 Gabapentin 1,600 mg HS PO; Start 09/06/16 at 21:00 Non-Formulary Medication 40 units HS SQ; Start 09/06/16 at 21:00; Status UNV Potassium Chloride 8 meq DAILY PO Last administered on 09/06/16 08:57; Admin Dose 8 MEQ; Start 09/06/16 at 09:00 Famotidine 20 mg DAILY PO Last administered on 09/06/16 08:55; Admin Dose 20 MG ; Start 09/06/16 at 09:00 Sodium Chloride 3 ml DAILY IV; Start 09/06/16 at 09:00 Sodium Chloride 3 ml UD PRN IV; Start 09/06/16 at 07:55 Sodium Chloride 10 ml UD PRN IV; Start 09/06/16 at 07:55 Losartan Potassium 100 mg DAILY PO Last administered on 09/06/16 08:56; Admin Dose 100 MG; Start 09/06/16 at 09:00 Hydrochlorothiazide 25 mg DAILY@0900 PO Last administered on 09/06/16 08:54; Admin Dose 25 MG; Start 09/06/16 at 09:00 General Awake, alert, oriented to person, place, and situation. Patient having bladder pain at this time HEENT EOMI, PERRL CV RRR, S1 S2 audible Historically hx of a-fib ekg pending Lungs Clear No rales, rhonchi or wheezes Abdomen Soft non distended, no tenderness to palpation, no masses Extremities No edema Integumentary No unusual findings Neuro No focal motor neuro deficits Labs, Most Recent- Laboratory Results Past 24 Hrs 09/05/16 16:45: Alanine Aminotransferase (ALT/SGPT) 32, Albumin 4.4, Albumin/Globulin Ratio 1.692, Alkaline Phosphatase 60, Anion Gap 15.5, Aspartate Amino Transf (AST/SGOT ) 19, BUN/Creatinine Ratio 16, Basophils # (Auto) 0.0, Basophils (%) (Auto) 0, Blood Urea Nitrogen 10, C-Reactive Protein < 0.50, Calcium Level 10.1, Calcium/ Ionized Calcium Ratio 4.5, Calculated Osmolality 250, Carbon Dioxide Level 24, Chloride Level 91, Creatinine 0.62, Eosinophils # (Auto) 0.0, Eosinophils (%) ( Auto) 1, Estimat Glomerular Filtration Rate 114.8, Estimated GFR (Non- 94.9, Glucose Level 172, Hematocrit 34.40, Hemoglobin 12.4, Lipase 84, Lymphocytes # (Auto) 1.0, Lymphocytes (%) (Auto) 18, Mean Corpuscular Hemoglobin 30.5, Mean Corpuscular Hemoglobin Concent 36.0, Mean Corpuscular Volume 85, Mean Platelet Volume 9.4, Monocytes # (Auto) 0.8, Monocytes (%) (Auto ) 15, Neutrophils # (Auto) 3.4, Neutrophils (%) (Auto) 65, Platelet Count 232, Potassium Level 3.3, Red Blood Count 4.06, Red Cell Distribution Width 13.2, Sodium Level 127, Total Bilirubin 0.7, Total Protein 7.0, White Blood Count 5.24 09/05/16 17:00: Urine Bacteria 1+, Urine Bilirubin Negative, Urine Blood Negative, Urine Clarity Clear, Urine Collection Type Catheter, Urine Color Yellow, Urine Glucose (UA) Negative, Urine Ketones 3+, Urine Leukocyte Esterase Trace, Urine Microscopic RBC 0-2, Urine Nitrite Negative, Urine Protein Negative, Urine Specific [place] 1.010, Urine Squamous Epithelial Cells 2-5, Urine Urobilinogen 0.2, Urine WBC 2-5, Urine pH 7.0, Volume Urine Centrifuged <10ml unspun 09/06/16 05:00: Anion Gap 12.8, BUN/Creatinine Ratio 10, Basophils # (Auto) , Basophils (%) ( Auto) , Blood Urea Nitrogen 6, Calcium Level 9.9, Carbon Dioxide Level 24, Chloride Level 106, Creatinine 0.60, Eosinophils # (Auto) , Eosinophils (%) ( Auto) , Estimat Glomerular Filtration Rate 119.2, Estimated GFR (Non- 98.6, Glucose Level 114, Hematocrit 33.70, Hemoglobin 11.8, Lymphocytes # (Auto) , Lymphocytes (%) (Auto) , Mean Corpuscular Hemoglobin 30.9 , Mean Corpuscular Hemoglobin Concent 35.0, Mean Corpuscular Volume 88, Mean Platelet Volume 9.8, Monocytes # (Auto) , Monocytes (%) (Auto) , Neutrophils # ( Auto) , Neutrophils (%) (Auto) , Platelet Count 232, Potassium Level 2.8, Red Blood Count 3.82, Red Cell Distribution Width 13.6, Sodium Level 140, White Blood Count 5.01, Absolute Band Neutrophils 0.1, Band Neutrophils % 2, Basophils # (Manual) 0.0, Basophils % (Manual) 0, Blood Morphology Comment Normal, Differential Total Cells Counted 100, Eosinophils # 0.0, Eosinophils % ( Manual) 0, Lymphocytes # 1.7, Lymphocytes % (Manual) 33, Metamyelocytes % 0, Monocytes # 0.1, Monocytes % (Manual) 2, Neutrophils # 3.2, Segmented Neutrophils % 63 24 Hr Result Diagram CBC BMP Last 24 Hrs 09/05/16 16:45 09/06/16 05:00 Micro Results pending Impressions cystiltis hypokalemia overmedicated altering some depressive meds and duplicated meds as well and monitor the patient and urology consult Assessment as above and plan as above Need to discuss with pcp . urology consult Plan ASSESSMENT UTI Abdominal pain kidney mass ? Additional Problems right mastectomy left partial 2009 colon cancer post op several years ago. atrial fib history to evaluate now. ALIDA ALEXANDER DO September 06, 2016 09:51
--- NOTE | 2016-09-06 11:00 | NUR ---
MED REC COMPLETE--current med list obtained from external med history application and retail pharmacy ([facility]).
--- NOTE | 2016-09-06 11:33 | NUR ---
Dr. Franco at bedside. Dr. Tyson has already been in to see patient.
[2016-09-06] MEDS: SUCRALFATE 1 GM (CARAFATE) TAB PO SCH ×3 (11:51→20:40)
--- NOTE | 2016-09-06 13:32 | NUR ---
Pt did not feel "up to eating lunch" but requests pudding- provided now. Pt resting in bed, playing on tablet. Call light within reach. Family left for afternoon.
[2016-09-06] MEDS ORDERED: HYDROmorphone 1 MG/ML (DILAUDID) SYRINGE IV PRN (16:05)
--- NOTE | 2016-09-06 18:10 | NUR ---
Pt lying in bed, resting. Ate supper on edge of bed. Family visiting this afternoon. Denies need for pain meds at this time.
[2016-09-06] MEDS: PANTOPRAZOLE IV 40 MG in SODIUM CHLORIDE FLUSH 10 ML IV SCH (20:39)
[2016-09-06] MEDS: INSULIN GLARGINE 1 UNIT/0.01ML (LANTUS) DOSE SC SCH (20:40)
[2016-09-06] MEDS ORDERED: ZOLPIDEM 5 MG (AMBIEN) TAB PO SCH (21:00)
[2016-09-06] MEDS ORDERED: SIMvastatin 10 MG (ZOCOR) TAB PO SCH (21:00)
[2016-09-07 04:40] VITALS: BP 140/66
--- NOTE | 2016-09-07 05:04 | NUR ---
1900-Pt is sitting up in bed watching tv, reports she just returned from using the restroom. Rates pain 1/10 at this time. IV is infusing without difficulty, no redness, swelling, or s/s of infection noted at this time. Call light is in reach, will continue to monitor. 0500-Pt is resting in bed asleep, does not appear in pain or discomfort at this time. Will continue to monitor.
--- NOTE | 2016-09-07 07:20 | NUR ---
Patient sitting up at edge of bed upon shift assessment. Alert and oriented X3. Denies abdominal pain, nausea, SOA, burning with urination, or other distress. Respirations even and non-labored on roomair. HR RRR. No edema noted to BLE. Tolerates Carafate slurry well prior to breakfast. Updated on plan of care for shift. IVF infusing into right AC IV site. Call light in reach.
[2016-09-07] MEDS: SUCRALFATE 1 GM (CARAFATE) TAB PO SCH ×4 (07:21→20:52)
[2016-09-07 07:43] VITALS: BP 156/66
[2016-09-07] MEDS: PANTOPRAZOLE IV 40 MG in SODIUM CHLORIDE FLUSH 10 ML IV SCH ×2 (08:13→20:52)
[2016-09-07] MEDS: LOSARTAN 100 MG (COZAAR) TABLET PO SCH (08:13)
[2016-09-07] MEDS: DILTIAZEM CD 240 MG (CARDIZEM CD) CAP PO SCH (08:13)
[2016-09-07] MEDS: metFORMIN 500 MG (GLUCOPHAGE) TABLET PO SCH ×2 (08:13→17:41)
[2016-09-07] MEDS: GABAPENTIN 400 MG (NEURONTIN) CAP PO SCH ×3 (08:13→20:53)
[2016-09-07] MEDS: meTOprolol TARTRATE 50 MG (LOPRESSOR) TABLET PO SCH ×2 (08:14→20:52)
[2016-09-07] MEDS: POTASSIUM CHLORIDE 8 MEQ PO SCH (08:14)
[2016-09-07] MEDS: NS FLUSH 3 ML DAILY IV SCH (08:14)
[2016-09-07] MEDS: glyBURIDE 5 MG (MICRONASE) TAB PO SCH ×2 (08:14→17:40)
[2016-09-07] MEDS: HYDROCHLOROTHIAZIDE 25 MG (HCTZ) TAB PO SCH (08:14)
[2016-09-07] MEDS: ACETAMINOPHEN 325 MG TAB (TYLENOL) PO PRN ×2 (09:03→21:26)
[2016-09-07 09:10] LABS: ANION GAP 9.8 MEQ/L (3-15)
--- NOTE | 2016-09-07 09:28 | NUR ---
PRN Tylenol provided for c/o generalized headache rated 4/10 on pain scale. Consumes 75% of cardiac breakfast tray but reports "mild" stomach ache afterward. Will continue to monitor.
--- NOTE | 2016-09-07 10:20 | Progress Note-A/P (E) ---
Progress Note Subjective Subjective Doing well this morning. A little epigastric discomfort after breakfast but thinks she may have eaten too much. Feels better than yesterday. Ambulating without difficulty, no nausea. Passing flatus. Objective VS Vital Signs Date Time Temp Pulse Resp B/P Pulse Ox O2 Delivery O2 Flow Rate FiO2 09/07/16 07:43 97.9 68 19 156/66 98 Room air I&O I & O Past 24 hrs 09/07/16 07:00 Intake Total 3530 ml Output Total 2700 ml Balance 830 ml Intake Oral 925 ml IV Total 2605 ml Output Urine Total 2700 ml Current Medications Current Medications Sodium Chloride 1,000 ml @ 100 mls/hr Q10H IV Last administered on 09/07/16 03 :23; Admin Dose 100 MLS/HR; Start 09/05/16 at 21:25 Acetaminophen 650 mg Q6H PRN PO Last administered on 09/07/16 09:03; Admin Dose 650 MG; Start 09/05/16 at 21:25 Ondansetron HCl 4 mg Q6H PRN IV Last administered on 09/06/16 07:59; Admin Dose 4 MG; Start 09/05/16 at 21:25 Metoclopramide HCl 10 mg Q6H PRN IV; Start 09/05/16 at 21:25 Diltiazem HCl 240 mg DAILY PO Last administered on 09/07/16 08:13; Admin Dose 240 MG; Start 09/06/16 at 09:00 Metoprolol Tartrate 50 mg BID PO Last administered on 09/07/16 08:14; Admin Dose 50 MG; Start 09/06/16 at 09:00 Gabapentin 800 mg BID@08,12 PO Last administered on 09/07/16 08:13; Admin Dose 800 MG; Start 09/06/16 at 08:30 Gabapentin 1,600 mg HS PO Last administered on 09/06/16 20:40; Admin Dose 1, 600 MG; Start 09/06/16 at 21:00 Insulin Glargine 40 unit HS SC Last administered on 09/06/16 20:40; Admin Dose 40 UNIT; Start 09/06/16 at 21:00 Potassium Chloride 8 meq DAILY PO Last administered on 09/07/16 08:14; Admin Dose 8 MEQ; Start 09/06/16 at 09:00 Sodium Chloride 3 ml DAILY IV; Start 09/06/16 at 09:00 Sodium Chloride 3 ml UD PRN IV; Start 09/06/16 at 07:55 Sodium Chloride 10 ml UD PRN IV; Start 09/06/16 at 07:55 Losartan Potassium 100 mg DAILY PO Last administered on 09/07/16 08:13; Admin Dose 100 MG; Start 09/06/16 at 09:00 Hydrochlorothiazide 25 mg DAILY@0900 PO Last administered on 09/07/16 08:14; Admin Dose 25 MG; Start 09/06/16 at 09:00 Sucralfate 1 gm 1 gm ACHS PO Last administered on 09/07/16 07:21; Admin Dose 1 GM; Start 09/06/16 at 11:40 Pantoprazole/ Sodium Chloride 10 ml @ 50 mls/hr BID IV Last administered on 09/07 08:13; Admin Dose 50 MLS/HR; Start 09/06/16 at 21:00 Hydromorphone HCl 1 mg Q6H PRN IV; Start 09/06/16 at 16:05 General Awake, alert, no distress. CV S1S2 RRR Lungs No dyspnea. Abdomen Bowel sounds present. Mild epigastric tenderness, improved from previously. Extremities No edema Integumentary Warm, dry. Neuro Grossly normal. Labs, Most Recent- Laboratory Results Past 24 Hrs 09/07/16 08:45: Anion Gap 9.8, BUN/Creatinine Ratio 7, Blood Urea Nitrogen 4, Calcium Level 9.7 , Carbon Dioxide Level 25, Chloride Level 108, Creatinine 0.54, Estimat Glomerular Filtration Rate 134.7, Estimated GFR (Non- 111.3, Glucose Level 159, Potassium Level 2.8, Sodium Level 140 24 Hr Result Diagram CBC BMP Last 24 Hrs 09/07/16 08:45 Assessment Epigastric pain, possibly secondary to gastritis History of colon cancer History of breast cancer Recent UTI Plan Continue current care including PPI and Carafate. This can be continued as outpatient. She is due for a colonoscopy for surveillance soon, and I recommend that this be done as an outpatient as long as she continues to improve. An EGD should be considered at the same time, due to her recent symptoms. I would prefer not to put her through the bowel prep for colonoscopy as long as she is feeling better. MARITZA CURRY MD September 07, 2016 10:20
[2016-09-07 11:29] VITALS: BP 117/58
[2016-09-07] MEDS: 0.45% SOD CHLORIDE (1/2 NS) 1,000 ML IV SCH (12:32)
[2016-09-07] MEDS: POTASSIUM CL IVPB 10 MEQ/100ML 100 ML IV SCH ×4 (12:32→16:05)
--- NOTE | 2016-09-07 13:32 | Progress Note-A/P (E) ---
Progress Note Subjective: had stomach discomfort yesterday but following med changes she does not have pain now but K stays low 2.8. Objective: Awake, alert, oriented to person, place, and situation. Patient having bladder pain at this time HEENT EOMI, PERRL CV RRR, S1 S2 audible Historically hx of a-fib ekg pending Lungs Clear No rales, rhonchi or wheezes Abdomen Soft non distended, no tenderness to palpation, no masses Extremities No edema Integumentary No unusual findings Neuro No focal motor neuro deficits Labs, Most Recent- Laboratory Results Past 24 Hrs 09/05/16 16:45: Alanine Aminotransferase (ALT/SGPT) 32, Albumin 4.4, Albumin/Globulin Ratio 1.692, Alkaline Phosphatase 60, Anion Gap 15.5, Aspartate Amino Transf (AST/SGOT ) 19, BUN/Creatinine Ratio 16, Basophils # (Auto) 0.0, Basophils (%) (Auto) 0, Blood Urea Nitrogen 10, C-Reactive Protein < 0.50, Calcium Level 10.1, Calcium/ Ionized Calcium Ratio 4.5, Calculated Osmolality 250, Carbon Dioxide Level 24, Chloride Level 91, Creatinine 0.62, Eosinophils # (Auto) 0.0, Eosinophils (%) ( Auto) 1, Estimat Glomerular Filtration Rate 114.8, Estimated GFR (Non- 94.9, Glucose Level 172, Hematocrit 34.40, Hemoglobin 12.4, Lipase 84, Lymphocytes # (Auto) 1.0, Lymphocytes (%) (Auto) 18, Mean Corpuscular Hemoglobin 30.5, Mean Corpuscular Hemoglobin Concent 36.0, Mean Corpuscular Volume 85, Mean Platelet Volume 9.4, Monocytes # (Auto) 0.8, Monocytes (%) (Auto ) 15, Neutrophils # (Auto) 3.4, Neutrophils (%) (Auto) 65, Platelet Count 232, Potassium Level 3.3, Red Blood Count 4.06, Red Cell Distribution Width 13.2, Sodium Level 127, Total Bilirubin 0.7, Total Protein 7.0, White Blood Count 5.24 09/05/16 17:00: Urine Bacteria 1+, Urine Bilirubin Negative, Urine Blood Negative, Urine Clarity Clear, Urine Collection Type Catheter, Urine Color Yellow, Urine Glucose (UA) Negative, Urine Ketones 3+, Urine Leukocyte Esterase Trace, Urine Microscopic RBC 0-2, Urine Nitrite Negative, Urine Protein Negative, Urine Specific [place] 1.010, Urine Squamous Epithelial Cells 2-5, Urine Urobilinogen 0.2, Urine WBC 2-5, Urine pH 7.0, Volume Urine Centrifuged <10ml unspun 09/06/16 05:00: Anion Gap 12.8, BUN/Creatinine Ratio 10, Basophils # (Auto) , Basophils (%) ( Auto) , Blood Urea Nitrogen 6, Calcium Level 9.9, Carbon Dioxide Level 24, Chloride Level 106, Creatinine 0.60, Eosinophils # (Auto) , Eosinophils (%) ( Auto) , Estimat Glomerular Filtration Rate 119.2, Estimated GFR (Non- 98.6, Glucose Level 114, Hematocrit 33.70, Hemoglobin 11.8, Lymphocytes # (Auto) , Lymphocytes (%) (Auto) , Mean Corpuscular Hemoglobin 30.9 , Mean Corpuscular Hemoglobin Concent 35.0, Mean Corpuscular Volume 88, Mean Platelet Volume 9.8, Monocytes # (Auto) , Monocytes (%) (Auto) , Neutrophils # ( Auto) , Neutrophils (%) (Auto) , Platelet Count 232, Potassium Level 2.8, Red Blood Count 3.82, Red Cell Distribution Width 13.6, Sodium Level 140, White Blood Count 5.01, Absolute Band Neutrophils 0.1, Band Neutrophils % 2, Basophils # (Manual) 0.0, Basophils % (Manual) 0, Blood Morphology Comment Normal, Differential Total Cells Counted 100, Eosinophils # 0.0, Eosinophils % ( Manual) 0, Lymphocytes # 1.7, Lymphocytes % (Manual) 33, Metamyelocytes % 0, Monocytes # 0.1, Monocytes % (Manual) 2, Neutrophils # 3.2, Segmented Neutrophils % 63 24 Hr Result Diagram CBC BMP Last 24 Hrs 09/05/16 16:45 09/06/16 05:00 Micro Results pending Impressions cystiltis hypokalemia overmedicated altering some depressive meds and duplicated meds as well and monitor the patient and urology consult Assessment as above and plan as above Need to discuss with pcp . Current Medications Awake, alert, oriented to person, place, and situation. Patient having bladder pain at this time HEENT EOMI, PERRL CV RRR, S1 S2 audible Historically hx of a-fib ekg pending Lungs Clear No rales, rhonchi or wheezes Abdomen Soft non distended, no tenderness to palpation, no masses Extremities No edema Integumentary No unusual findings Neuro No focal motor neuro deficits Labs, Most Recent- Laboratory Results Past 24 Hrs 09/05/16 16:45: Alanine Aminotransferase (ALT/SGPT) 32, Albumin 4.4, Albumin/Globulin Ratio 1.692, Alkaline Phosphatase 60, Anion Gap 15.5, Aspartate Amino Transf (AST/SGOT ) 19, BUN/Creatinine Ratio 16, Basophils # (Auto) 0.0, Basophils (%) (Auto) 0, Blood Urea Nitrogen 10, C-Reactive Protein < 0.50, Calcium Level 10.1, Calcium/ Ionized Calcium Ratio 4.5, Calculated Osmolality 250, Carbon Dioxide Level 24, Chloride Level 91, Creatinine 0.62, Eosinophils # (Auto) 0.0, Eosinophils (%) ( Auto) 1, Estimat Glomerular Filtration Rate 114.8, Estimated GFR (Non- 94.9, Glucose Level 172, Hematocrit 34.40, Hemoglobin 12.4, Lipase 84, Lymphocytes # (Auto) 1.0, Lymphocytes (%) (Auto) 18, Mean Corpuscular Hemoglobin 30.5, Mean Corpuscular Hemoglobin Concent 36.0, Mean Corpuscular Volume 85, Mean Platelet Volume 9.4, Monocytes # (Auto) 0.8, Monocytes (%) (Auto ) 15, Neutrophils # (Auto) 3.4, Neutrophils (%) (Auto) 65, Platelet Count 232, Potassium Level 3.3, Red Blood Count 4.06, Red Cell Distribution Width 13.2, Sodium Level 127, Total Bilirubin 0.7, Total Protein 7.0, White Blood Count 5.24 09/05/16 17:00: Urine Bacteria 1+, Urine Bilirubin Negative, Urine Blood Negative, Urine Clarity Clear, Urine Collection Type Catheter, Urine Color Yellow, Urine Glucose (UA) Negative, Urine Ketones 3+, Urine Leukocyte Esterase Trace, Urine Microscopic RBC 0-2, Urine Nitrite Negative, Urine Protein Negative, Urine Specific [place] 1.010, Urine Squamous Epithelial Cells 2-5, Urine Urobilinogen 0.2, Urine WBC 2-5, Urine pH 7.0, Volume Urine Centrifuged <10ml unspun 09/06/16 05:00: Anion Gap 12.8, BUN/Creatinine Ratio 10, Basophils # (Auto) , Basophils (%) ( Auto) , Blood Urea Nitrogen 6, Calcium Level 9.9, Carbon Dioxide Level 24, Chloride Level 106, Creatinine 0.60, Eosinophils # (Auto) , Eosinophils (%) ( Auto) , Estimat Glomerular Filtration Rate 119.2, Estimated GFR (Non- 98.6, Glucose Level 114, Hematocrit 33.70, Hemoglobin 11.8, Lymphocytes # (Auto) , Lymphocytes (%) (Auto) , Mean Corpuscular Hemoglobin 30.9 , Mean Corpuscular Hemoglobin Concent 35.0, Mean Corpuscular Volume 88, Mean Platelet Volume 9.8, Monocytes # (Auto) , Monocytes (%) (Auto) , Neutrophils # ( Auto) , Neutrophils (%) (Auto) , Platelet Count 232, Potassium Level 2.8, Red Blood Count 3.82, Red Cell Distribution Width 13.6, Sodium Level 140, White Blood Count 5.01, Absolute Band Neutrophils 0.1, Band Neutrophils % 2, Basophils # (Manual) 0.0, Basophils % (Manual) 0, Blood Morphology Comment Normal, Differential Total Cells Counted 100, Eosinophils # 0.0, Eosinophils % ( Manual) 0, Lymphocytes # 1.7, Lymphocytes % (Manual) 33, Metamyelocytes % 0, Monocytes # 0.1, Monocytes % (Manual) 2, Neutrophils # 3.2, Segmented Neutrophils % 63 24 Hr Result Diagram CBC BMP Last 24 Hrs 09/05/16 16:45 09/06/16 05:00 Micro Results pending Impressions cystiltis hypokalemia overmedicated altering some depressive meds and duplicated meds as well and monitor the patient and urology consult Assessment as above and plan as above Need to discuss with pcp . Vital Signs Date Time Temp Pulse Resp B/P Pulse Ox O2 Delivery O2 Flow Rate FiO2 09/07/16 11:29 98.0 62 19 117/58 98 Room air I & O Past 24 hrs 09/07/16 07:00 Intake Total 3530 ml Output Total 2700 ml Balance 830 ml Intake Oral 925 ml IV Total 2605 ml Output Urine Total 2700 ml Soft non distended, no tenderness to palpation, no massesPhysical Exam General--Awake and alert. No distress. HEENT--Normocephalic. MMM in oral cavity. Lungs--Clear to auscultation bilaterally. Nonlabored respirations. Heart--RRR. No murmurs. Abdomen--Normal bowel sounds. Soft. Nondistended. Nontender. Extremities--No edema. Past 24 hour Lab Results 09/07/16 08:45 Laboratory Results Past 24 Hrs 09/07/16 08:45: Anion Gap 9.8, BUN/Creatinine Ratio 7, Blood Urea Nitrogen 4, Calcium Level 9.7 , Carbon Dioxide Level 25, Chloride Level 108, Creatinine 0.54, Estimat Glomerular Filtration Rate 134.7, Estimated GFR (Non- 111.3, Glucose Level 159, Potassium Level 2.8, Sodium Level 140 Microbiology 09/05/16 Blood Culture - Preliminary, Resulted No Growth in 24 hours 09/05/16 Urine Culture - Preliminary, Resulted Imaging Results no acute findings of abdomen but see lengthy report of findings i.e. small 16mm stone in renal conduit no hydronephroses. no hematuria. Assessment/Plan Awake, alert, oriented to person, place, and situation. Patient having bladder pain at this time HEENT EOMI, PERRL CV RRR, S1 S2 audible Historically hx of a-fib ekg pending Lungs Clear No rales, rhonchi or wheezes Abdomen Soft non distended, no tenderness to palpation, no masses Extremities No edema Integumentary No unusual findings Neuro No focal motor neuro deficits Labs, Most Recent- Laboratory Results Past 24 Hrs 09/05/16 16:45: Alanine Aminotransferase (ALT/SGPT) 32, Albumin 4.4, Albumin/Globulin Ratio 1.692, Alkaline Phosphatase 60, Anion Gap 15.5, Aspartate Amino Transf (AST/SGOT ) 19, BUN/Creatinine Ratio 16, Basophils # (Auto) 0.0, Basophils (%) (Auto) 0, Blood Urea Nitrogen 10, C-Reactive Protein < 0.50, Calcium Level 10.1, Calcium/ Ionized Calcium Ratio 4.5, Calculated Osmolality 250, Carbon Dioxide Level 24, Chloride Level 91, Creatinine 0.62, Eosinophils # (Auto) 0.0, Eosinophils (%) ( Auto) 1, Estimat Glomerular Filtration Rate 114.8, Estimated GFR (Non- 94.9, Glucose Level 172, Hematocrit 34.40, Hemoglobin 12.4, Lipase 84, Lymphocytes # (Auto) 1.0, Lymphocytes (%) (Auto) 18, Mean Corpuscular Hemoglobin 30.5, Mean Corpuscular Hemoglobin Concent 36.0, Mean Corpuscular Volume 85, Mean Platelet Volume 9.4, Monocytes # (Auto) 0.8, Monocytes (%) (Auto ) 15, Neutrophils # (Auto) 3.4, Neutrophils (%) (Auto) 65, Platelet Count 232, Potassium Level 3.3, Red Blood Count 4.06, Red Cell Distribution Width 13.2, Sodium Level 127, Total Bilirubin 0.7, Total Protein 7.0, White Blood Count 5.24 09/05/16 17:00: Urine Bacteria 1+, Urine Bilirubin Negative, Urine Blood Negative, Urine Clarity Clear, Urine Collection Type Catheter, Urine Color Yellow, Urine Glucose (UA) Negative, Urine Ketones 3+, Urine Leukocyte Esterase Trace, Urine Microscopic RBC 0-2, Urine Nitrite Negative, Urine Protein Negative, Urine Specific [place] 1.010, Urine Squamous Epithelial Cells 2-5, Urine Urobilinogen 0.2, Urine WBC 2-5, Urine pH 7.0, Volume Urine Centrifuged <10ml unspun 09/06/16 05:00: Anion Gap 12.8, BUN/Creatinine Ratio 10, Basophils # (Auto) , Basophils (%) ( Auto) , Blood Urea Nitrogen 6, Calcium Level 9.9, Carbon Dioxide Level 24, Chloride Level 106, Creatinine 0.60, Eosinophils # (Auto) , Eosinophils (%) ( Auto) , Estimat Glomerular Filtration Rate 119.2, Estimated GFR (Non- 98.6, Glucose Level 114, Hematocrit 33.70, Hemoglobin 11.8, Lymphocytes # (Auto) , Lymphocytes (%) (Auto) , Mean Corpuscular Hemoglobin 30.9 , Mean Corpuscular Hemoglobin Concent 35.0, Mean Corpuscular Volume 88, Mean Platelet Volume 9.8, Monocytes # (Auto) , Monocytes (%) (Auto) , Neutrophils # ( Auto) , Neutrophils (%) (Auto) , Platelet Count 232, Potassium Level 2.8, Red Blood Count 3.82, Red Cell Distribution Width 13.6, Sodium Level 140, White Blood Count 5.01, Absolute Band Neutrophils 0.1, Band Neutrophils % 2, Basophils # (Manual) 0.0, Basophils % (Manual) 0, Blood Morphology Comment Normal, Differential Total Cells Counted 100, Eosinophils # 0.0, Eosinophils % ( Manual) 0, Lymphocytes # 1.7, Lymphocytes % (Manual) 33, Metamyelocytes % 0, Monocytes # 0.1, Monocytes % (Manual) 2, Neutrophils # 3.2, Segmented Neutrophils % 63 24 Hr Result Diagram CBC BMP Last 24 Hrs 09/05/16 16:45 09/06/16 05:00 Micro Results pending Impressions cystiltis hypokalemia overmedicated altering some depressive meds and duplicated meds as well and monitor the patient and urology consult Assessment I think that patilent needs re look endoscopy upper and lower and Dr England is planning same. I am going to begin potassium protocol replacement and monitor in am on pass off to Fluids- iv 1/2 saline with k and again to monitor Diet- as tolerated Code Status- DVT prophylaxis-no Disposition- hospital and dismiss ALIDA Kinney DO September 07, 2016 13:32
[2016-09-07] MEDS: LIDOCAINE PF 1% (XYLOCAINE) 2 ML VIAL INJ PRN ×3 (13:38→16:06)
[2016-09-07 15:34] VITALS: BP 112/92
--- NOTE | 2016-09-07 18:00 | NUR ---
Pt ambulates room indep. IVF infusing along with K+ Tolerating without c/o. Calls appropriately for assist.
[2016-09-07 19:47] VITALS: BP 137/60
[2016-09-07 20:20] LABS: MAGNESIUM* 1.2 mg/dL (1.6-2.3)
[2016-09-07] MEDS ORDERED: POTASSIUM CHLORIDE ER 20 MEQ TABLET PO ONE (20:45)
[2016-09-07] MEDS: MAGNESIUM 1 GM/100 ML IVPB 100 ML IV SCH ×2 (20:54→22:08)
[2016-09-07] MEDS: INSULIN GLARGINE 1 UNIT/0.01ML (LANTUS) DOSE SC SCH (20:54)
[2016-09-07 23:51] VITALS: BP 142/65
[2016-09-08 03:52] VITALS: BP 125/64
[2016-09-08] MEDS: 0.45% SOD CHLORIDE (1/2 NS) 1,000 ML IV SCH (05:21)
[2016-09-08] MEDS: SUCRALFATE 1 GM (CARAFATE) TAB PO SCH ×3 (06:29→17:39)
--- NOTE | 2016-09-08 06:55 | NUR ---
Pt rests in short intervals throughout the night. Up frequently to use the bathroom. IVF infusing w/o difficulty.
[2016-09-08 07:22] LABS: ALBUMIN 3.3 g/dL (3.4-5.0); ANION GAP 10.4 MEQ/L (3-15); MAGNESIUM* 1.7 mg/dL (1.6-2.3)
[2016-09-08 07:29] VITALS: BP 129/62
[2016-09-08] MEDS: metFORMIN 500 MG (GLUCOPHAGE) TABLET PO SCH ×2 (08:06→17:39)
[2016-09-08] MEDS: GABAPENTIN 400 MG (NEURONTIN) CAP PO SCH ×2 (08:07→12:06)
[2016-09-08] MEDS: glyBURIDE 5 MG (MICRONASE) TAB PO SCH ×2 (08:07→17:39)
[2016-09-08] MEDS ORDERED: DOCUSATE SODIUM 100 MG (COLACE) CAP PO PRN (08:15)
[2016-09-08] MEDS ORDERED: MAGNESIUM HYDROXIDE 80MG/ML (MILK OF MAGNESIA) 30 ML UDC PO PRN (08:15)
[2016-09-08] MEDS ORDERED: POLYETHYLENE GLYCOL 17 GM (MIRALAX) PACKET PO PRN (08:15)
[2016-09-08] MEDS: NS FLUSH 3 ML DAILY IV SCH (09:00)
[2016-09-08] MEDS ORDERED: PANTOPRAZOLE 40 MG (PROTONIX) TAB PO SCH (09:00)
--- NOTE | 2016-09-08 09:09 | Progress Note (E) ---
Progress Note SUBJECTIVE Admitted 09/05 from ED with nausea, vomiting, weakness x 3 days. Had UTI symptoms. Had been treated prior to admit with nitrofurantoin and with bactrim for UTI from PCP's office. She was even later seen at urgent care and was given ciprofloxacin but continued to feel worse with N/V, achy abdominal pain ( epigastric, LUQ). CT abdomen was done in ED with results as noted below. She was given levofloxacin in ED. No further antibiotics were given. Surgery was consulted due to abdominal pain. Sucralfate and pantoprazole were started and surgery recommended outpatient referral for colonoscopy and EGD. Nausea/ vomiting improved. Had low K and Mg which improved with replacement. Overnight, no major issues reported. Up frequently to use restroom per RN report. Voided 4 L yesterday. No BM charted since admit. Urine culture from this admit remains negative. On exam, alert, interactive, oriented. No distress. Long conversation regarding findings, plan of care. Discussed with her son-in-law on speaker phone as well. Working on constipation and arranging for urology referral. Already has appointment for EGD/colonoscopy consultation with Dr. Franco. OBJECTIVE Vital Signs Date Time Temp Pulse Resp B/P Pulse Ox O2 Delivery O2 Flow Rate FiO2 09/08/16 07:29 97.2 60 18 129/62 Room air 09/08/16 03:52 98 I & O 09/07/16 09/08/16 Cumulative From/Thru 19:00 07:00 09/05/16 16:15 - 09/08/16 06:01 Intake Total 593 ml 2284 ml 7192 ml Output Total 1200 ml 2800 ml 8500 ml Balance -607 ml -516 ml -1308 ml GEN: Awake, interactive, oriented, NAD. HEENT: EOMI, clear sclerae, moist oral mucosa. CV: Regular without murmur. PULM: CTA B with no R/R/W. ABD: Soft, no apparent tenderness at this time. Hypoactive bowel sounds. EXTR: Trace ankle edema. INTEG: Age related changes. NEURO: No focal motor neuro deficit. Lab-Past 14 Days, 35 Results 09/05/16 16:45: Alanine Aminotransferase (ALT/SGPT) 32, Albumin 4.4, Albumin/Globulin Ratio 1.692, Alkaline Phosphatase 60, Anion Gap 15.5H, Aspartate Amino Transf (AST/ SGOT) 19, BUN/Creatinine Ratio 16, Basophils # (Auto) 0.0, Basophils (%) (Auto) 0, Blood Urea Nitrogen 10, C-Reactive Protein < 0.50, Calcium Level 10.1, Calcium/Ionized Calcium Ratio 4.5, Calculated Osmolality 250L, Carbon Dioxide Level 24, Chloride Level 91L, Creatinine 0.62, Eosinophils # (Auto) 0.0, Eosinophils (%) (Auto) 1, Estimat Glomerular Filtration Rate 114.8, Estimated GFR (Non- 94.9, Glucose Level 172#H, Hematocrit 34.40L, Hemoglobin 12.4, Lipase 84, Lymphocytes # (Auto) 1.0, Lymphocytes (%) (Auto) 18L , Mean Corpuscular Hemoglobin 30.5, Mean Corpuscular Hemoglobin Concent 36.0, Mean Corpuscular Volume 85, Mean Platelet Volume 9.4, Monocytes # (Auto) 0.8, Monocytes (%) (Auto) 15H, Neutrophils # (Auto) 3.4, Neutrophils (%) (Auto) 65, Platelet Count 232, Potassium Level 3.3L, Red Blood Count 4.06, Red Cell Distribution Width 13.2, Sodium Level 127L, Total Bilirubin 0.7, Total Protein 7.0, White Blood Count 5.24 09/05/16 17:00: Urine Bacteria 1+, Urine Bilirubin Negative, Urine Blood Negative, Urine Clarity Clear, Urine Collection Type Catheter, Urine Color Yellow, Urine Glucose (UA) Negative, Urine Ketones 3+H, Urine Leukocyte Esterase TraceH, Urine Microscopic RBC 0-2, Urine Nitrite Negative, Urine Protein Negative, Urine Specific [place] 1.010, Urine Squamous Epithelial Cells 2-5, Urine Urobilinogen 0.2, Urine WBC 2-5, Urine pH 7.0, Volume Urine Centrifuged <10ml unspun 09/06/16 05:00: Anion Gap 12.8, BUN/Creatinine Ratio 10, Basophils # (Auto) , Basophils (%) ( Auto) , Blood Urea Nitrogen 6L, Calcium Level 9.9, Carbon Dioxide Level 24, Chloride Level 106, Creatinine 0.60, Eosinophils # (Auto) , Eosinophils (%) ( Auto) , Estimat Glomerular Filtration Rate 119.2, Estimated GFR (Non- 98.6, Glucose Level 114#H, Hematocrit 33.70L, Hemoglobin 11.8L, Lymphocytes # (Auto) , Lymphocytes (%) (Auto) , Mean Corpuscular Hemoglobin 30.9 , Mean Corpuscular Hemoglobin Concent 35.0, Mean Corpuscular Volume 88, Mean Platelet Volume 9.8H, Monocytes # (Auto) , Monocytes (%) (Auto) , Neutrophils # (Auto) , Neutrophils (%) (Auto) , Platelet Count 232, Potassium Level 2.8L, Red Blood Count 3.82L, Red Cell Distribution Width 13.6, Sodium Level 140#, White Blood Count 5.01, Absolute Band Neutrophils 0.1, Band Neutrophils % 2, Basophils # (Manual) 0.0, Basophils % (Manual) 0, Blood Morphology Comment Normal, Differential Total Cells Counted 100, Eosinophils # 0.0, Eosinophils % ( Manual) 0, Lymphocytes # 1.7, Lymphocytes % (Manual) 33, Metamyelocytes % 0, Monocytes # 0.1, Monocytes % (Manual) 2L, Neutrophils # 3.2, Segmented Neutrophils % 63 09/06/16 09:50: Lactic Acid Level 1.8 09/07/16 08:45: Anion Gap 9.8, BUN/Creatinine Ratio 7L, Blood Urea Nitrogen 4L, Calcium Level 9.7, Carbon Dioxide Level 25, Chloride Level 108, Creatinine 0.54L, Estimat Glomerular Filtration Rate 134.7, Estimated GFR (Non- 111.3, Glucose Level 159#H, Potassium Level 2.8L, Sodium Level 140 09/07/16 20:03: Potassium Level 3.4#L, Magnesium Level 1.2*L 09/08/16 05:40: Anion Gap 10.4, Blood Urea Nitrogen 5L, Calcium Level 9.8, Carbon Dioxide Level 27, Chloride Level 107, Creatinine 0.56L, Estimat Glomerular Filtration Rate 129.1, Estimated GFR (Non- 106.7, Glucose Level 111#H, Potassium Level 3.8, Sodium Level 140, Magnesium Level 1.7#, Albumin 3.3#L, Phosphorus Level 2.3L MICRO 09/05 Blood culture Negative to date 09/05 Urine culture (cath) Negative to date 09/05 Urine culture (clean catch) Negative to date 09/05/16 CT ABDOMEN/PELVIS WO CLINICAL INDICATION: Patient with left lower quadrant abdominal pain and vomiting. EXAM: CT scan of the abdomen and pelvis performed without IV enteric contrast. Coronal and sagittal reformatted images are created. COMPARISON: X-ray of the abdomen dated 09/05/2016. FINDINGS: There is minimal atelectasis involving both lung bases. There are moderately hypertrophic spurs involving both acetabular regions. There is bony excrescence involving the left iliac which appears chronic. There are degenerative spurs of the lower thoracic and lumbar spine. There is lower lumbar spine facet arthropathy. The pancreas is atrophic with some fatty replacement seen. The gallbladder is not visualized and may be surgically resected. The liver, pancreas, and adrenal glands are unremarkable. There is a 13 mm partially exophytic high-density lesion involving the lateral and inferior aspect of the right kidney with Hounsfield units of 36. Both kidneys have lobulated contours. There is nonspecific calcification of the cortex region of the mid to upper left kidney. There are subtle low-density areas involving the left kidney. Cyst may be considered. There are no urinary tract stones. There is no hydronephrosis. There are postop changes with surgical anastomosis in the sigmoid colon low pelvis region. Otherwise, the colon, small bowel, and stomach show no significant abnormality. There is no intra-abdominal free air or free fluid. There is no significant abdominal lymphadenopathy or pelvic lymphadenopathy. The bladder is partially fluid distended with no gross abnormality seen. The uterus is surgically absent. The bilateral adnexal regions are atrophic with calcification seen in the region. There are phleboliths seen in the pelvis. The appendix is not visualized and may be surgically resected. The abdominal aorta is normal caliber with mild atherosclerotic disease. The extra-abdominal and extrapelvic soft tissue structures are unremarkable. Chronic-appearing compression deformity of the posterior upper endplate of the L1 vertebral body. IMPRESSION: 1: There is no CT evidence of acute abdominal or pelvic process. 2 : Indeterminate exophytic 13 mm right kidney lesion. There is also lobulated appearance of both kidneys with low-density areas within the left kidney. Nonemergent CT scan of both kidneys with contrast is suggested for further evaluation. If patient cannot have IV contrast, then MRI of the kidneys would better evaluate. 3: Atrophy of the pancreas. 4: Postop changes to the abdomen and pelvis region with no acute process. 09/05/16 ACUTE ABD SERIES CLINICAL INDICATION: Patient with abdominal pain. EXAMS: X-ray of the chest PA view and x-ray of the abdomen supine and upright views. COMPARISONS: None. FINDINGS: LUNGS/ PLEURA: Lungs are clear. There is no pneumothorax. There is no pleural effusion. MEDIASTINUM: Unremarkable. PULMONARY VASCULATURE: Unremarkable. HEART: Unremarkable. BONES/ EXTRATHORACIC SOFT TISSUE: There are hypertrophic spurs seen throughout the thoracic and lumbar spine. There are surgical clips overlying the bilateral axillary regions. There is lower cervical spine anterior disc fusion hardware seen. ABDOMEN AND PELVIS: Unremarkable x-ray of the abdomen with nonobstructed bowel gas pattern. There is no evidence of abdominal free air. There are no focal calcifications overlying the expected regions/ pathways of both kidneys, ureters , and bladder regions. IMPRESSION: 1: There is no radiographic evidence of acute cardiopulmonary process. 2: There is no radiographic evidence of acute abdominal or pelvic process. ASSESSMENT Digna Wooten is a 71 year old female admitted from ED 09/05 with nausea/ vomiting, abdominal pain, and symptoms of urinary tract infection. She was found incidentally to have a lobulated renal appearance with 13 mm exophytic right renal lesion of undetermined significance. During this hospitalization she was also found to have hypomagnesemia and hypokalemia. PLAN * UTI: Present on admit. Though she had tachycardia and mild tachypnea on admit , it was felt that sepsis was not present. Noted that urine culture was ultimately negative. Had already received PO antibiotics (nitrofurantoin, Bactrim, and 1 dose of ciprofloxacin) prior to admit. On this admit, got only 1 dose of levofloxacin. In light of negative urine cultures, deferred further antibiotic at this time. * Right Renal Mass: 13 mm max dimension on CT scan. Indeterminate significance because of lack of contrast on CT scan. Refer to urologist for further evaluation. * Epigastric, LUQ Pain: Improving. Uncertain etiology. Does have some constipation. CT otherwise reassuirng. Surgery consulted and EGD/colonoscopy recommended but this can be done in outpatient setting. Gave pantoprazole, sucralfate. Continued sucralfate at discharge and switched pantoprazole to omeprazole. * Nausea/Vomiting: Resolved. Gave ondansetron. * Hypomagnesemia: Mike 1.2. Improved with IV supplementation. * Hypokalemia: Mike 2.8. Improved with IV and PO supplement. * Constipation: Bowel regimen. * F/E/N: Cardiac diet. Stopped IVF 09/08. Peripheral IV. * Prophylaxis: Ambulate. * Code Status: Full * Dispo: Inpatient. Work on constipation, urology referral. Discharge 09/08 if improving or 09/09. CHRONIC ISSUES * Peripheral Nueorpathy: Gabapentin * Diabetes Mellitus Type II: Glyburide, metformin, insulin glargine. * HTN: Losartan, HCTZ, metoprolol, diltiazem. Consider de-escalating at discharge by stopping diltiazem. CHRISSY LOPEZ MD September 08, 2016 08:35
[2016-09-08] MEDS: POTASSIUM CHLORIDE 8 MEQ PO SCH (09:11)
[2016-09-08] MEDS: DILTIAZEM CD 240 MG (CARDIZEM CD) CAP PO SCH (09:11)
[2016-09-08] MEDS: LOSARTAN 100 MG (COZAAR) TABLET PO SCH (09:11)
[2016-09-08] MEDS: HYDROCHLOROTHIAZIDE 25 MG (HCTZ) TAB PO SCH (09:12)
[2016-09-08] MEDS: meTOprolol TARTRATE 50 MG (LOPRESSOR) TABLET PO SCH (09:12)
[2016-09-08 09:49] VITALS: BP 129/62
--- NOTE | 2016-09-08 10:53 | NUR ---
NUTRITION ASSESSMENT Level 1 Patient: Digna Wooten Age/Sex: 71/F Date Screened: 09-08-16 Weight: 150.4#/68.4 kg Height: 64 inches Primary Diagnosis: UTI, abdominal pain Diet Order: cardiac, medium diabetic Relevant labs: glucose 111, phosphorus 2.3, magnesium 1.7, potassium 3.8 Food allergies: N Nutrition Assessment Criteria Age over 80: N Body Mass Index (BMI) under 19: N Admission Screening Indicates Risk? N Moderate/High Risk Diagnosis: 3 points TPN or PPN: N NPO or clear liquid diet: N Serum Glucose <70 or >180: N Hgb A1c >6.7: N/A Total: 3 points Risk Screen: __ Patient at low nutritional risk based on available data; reevaluate in 5-7 days _X_ Patient at moderate nutritional risk based on available data; reevaluate in 3-5 days __ Patient at high nutritional risk; complete Nutrition Assessment within 48 hours of admission. Comments: Appetite/intake improving since admission, now eating 50-75% of meals. Noted n/v improved since admission, and plans are made for EGD/colonoscopy as an outpatient. Pt. denied weight changes [employer]; will reassess as documented above.
--- NOTE | 2016-09-08 14:05 | NUR ---
MULTIDISCIPLINARY MTG/DR. LOPEZ: Pt. was treated for a UTI prior to admission. Pt. continued to feel worse with N/V, achy abdominal pain even while on outpatient antibiotics. CT abdomen was done Surgery was consulted due to abdominal pain. Surgery recommended outpatient referral for colonoscopy and EGD. A right renal mass was discovered on CT scan. Pt. has been referred to urologist for further evaluation. Pt. will likely discharge home today or tomorrow. No discharge needs identified at this time.
--- NOTE | 2016-09-08 14:28 | CONSULTATION REPORT ---
ATTENDING PHYSICIAN: Dr. Tyson CONSULTING PHYSICIAN: REPORT Date of Report: 09/06/2016 REASON FOR CONSULTATION: Abdominal pain. IMPRESSION: 1. Diffuse abdominal pain, possible gastritis. 2. Recent history of UTI. RECOMMENDATIONS: We will place her on stronger antacid therapy along with Carafate to see if it alleviates any of her discomfort. Upper and lower endoscopy may be indicated, since she has been taking NSAIDs on a regular basis, and carries a history of colon cancer. This could be done either as an in-patient or out-patient, depending on her progress. HISTORY OF PRESENT ILLNESS: Patient is a 71-year-old who was admitted after being seen in Dr. Vivas's office yesterday with abdominal pain. She had been diagnosed with a UTI and for the last few weeks had been on antibiotics with very little improvement in her symptoms. She developed nausea and vomiting over the 3-days prior to admission, and reports that her appetite has been fairly poor throughout August. She thinks she has lost 8 or 9 pounds. Her bowel habits have been unremarkable without any black or blood stools. She still experiences discomfort when she voids, which she localizes to the urethra. A UA done yesterday from a straight cath showed 1 plus bacteria and 2 to 5 epithelial cells, with trace leukocyte esterase. 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 Imaging on admission included a chest x-ray and abdominal x-ray what were unremarkable, and a CT of the abdomen and pelvis. The CT shows no acute abnormality but there was an exophytic 13 mm lesion on the right kidney. She has had her gallbladder removed in the distance past. She has been treated for colon cancer with a sigmoid colectomy followed by chemotherapy, several years ago. She also has had bilateral breast cancer, both treated with lumpectomy and radiation. She is coming due for colonoscopy and mentioned she actually had an appointment to see me in September for that reason. PAST MEDICAL HISTORY: Insulin dependent diabetes mellitus. HTN. Hyperlipidemia. Atrial fibrillation. Colon cancer. Breast cancer. PAST SURGICAL HISTORY: Cholecystectomy. Bilateral lumpectomy for breast cancer. Sigmoid colectomy . ALLERGIES: Penicillins, Codeine, iodine and latex. MEDICATIONS: Cipro. Diltiazem. Gabapentin. Glyburide. Humalog insulin. Losartan/HCTZ. Metformin. Metoprolol. Omeprazole. Pentoxifylline, Potassium chloride. Rantidine, Simvastatin and Zolpidem . SOCIAL HISTORY: Patient and her moved last January from [place]. She does not smoke or use alcohol. They have three children. FAMILY HISTORY: Noncontributory. REVIEW OF SYSTEMS: As above.. PHYSICAL EXAM: Temp 98.0 yesterday. Heart rate 95. Respiration 16. BP 165/86. O2 sats were 99 percent on room air. GENERAL: The patient is awake, alert, orientated in no acute distress. HEENT: No scleral icterus. Neck supple and nontender with no lymphadenopathy. HEART: S1 S2 regular rate and rhythm with occasional PAC. ABDOMEN: Bowel sounds are present soft with tenderness in the epigastrium and left upper quadrant, and to a lesser degree in all other quadrants. No guarding or rebound tenderness was noted. There was no palpable hernia. She has a well-healed supraumbilical midline scar and another scar in the left lower quadrant, presumably from her colectomy. No masses were notable. RECTAL: Normal tone with no palpable mass no gross blood. EXTREMITIES: She has mild lower extremity edema bilaterally. VASCULAR: Popliteal pulses were 2+ and regular. SKIN: Warm and dry with no jaundice. NEURO: Grossly intact but I did not evaluate her extremities completely in that regard. LABS: On admission white blood cell count was 5.2 and hemoglobin 12.4. Sodium 127. Potassium 3.3. BUN 10. Creatinine 0.6. Liver enzymes and lipase were normal. CRP was less than 0.5. UA as described.
[2016-09-08] MEDS ORDERED: BISACODYL 10 MG SUPP (DULCOLAX) PR ONE (15:33)
[2016-09-08 17:21] VITALS: BP 140/60
--- NOTE | 2016-09-08 17:43 | NUR ---
Patient is dressed awaiting dismissal. Has no complaints. at bedside. Suppertime medication given.
--- NOTE | 2016-09-08 18:16 | Discharge Instructions (E) ---
Discharge Instructions Instructions * You were evaluated and treated for possible recurrent urinary tract infection. You had a urine culture that grew no bacteria. You already took oral antibiotic prior to admit and you received 1 IV dose of levofloxacin in ED on this admit. It is felt that based on your negative urine culture result, no further antibiotic is needed at this time. For further evaluation of your bladder, you have been referred to the urologist. Keep that appointment as scheduled. * You had upper abdominal pain that could be related to ulcer or some other stomach problem. You improved with sucralfate and with pantoprazole. Continue these at discharge and follow-up with Dr. Franco as scheduled for planning of EGD (upper endoscopy) as well as scheduled your surveillance colonoscopy for history of colon cancer. * In case of recurrent nausea, a short-course of promethazine has been prescribed. Review the provided handout for details. * You had low potassium and low magnesium but these improved with IV supplement. * You have been taking 4 different drugs to help control your blood pressure. It is felt that this can be reduced to just 3. For now, stop taking diltiazem and follow-up with your primary care doctor regarding your blood pressure. Activity Instructions As tolerated. Doctor's Appointment Follow-up with your primary care doctor in 3-5 days. Keep your appointments with Dr. Cedeño and Dr. Franco as scheduled. Discharge Diet: Heart Healthy CHRISSY LOPEZ MD September 08, 2016 18:16
[2016-09-08] MEDS ORDERED: SCR1T1 PO (18:19)
[2016-09-08] MEDS ORDERED: AC325T PO (18:19)
--- NOTE | 2016-09-08 18:40 | NUR ---
Discharge instructions reviewed and clarified. Patient dismissed to home with . Ambulatory to exit accompanied by staff.
--- NOTE | 2016-09-09 11:21 | Discharge Summary (E) ---
Discharge Summary (E) Admit Date/Time September 05, 2016 at 20:37 Discharge Date/Time September 08, 2016 at 18:40 Admitting Provider Maria E Jackson MD Primary Care Provider Florian Somers MD Attending Provider Maria E Jackson MD, Michael MD Consulting Provider History and Present Illness Digna Wooten is a 71 year old female admitted from ED 09/05 with nausea/ vomiting, abdominal pain, and symptoms of urinary tract infection. She was found incidentally to have a lobulated renal appearance with 13 mm exophytic right renal lesion of undetermined significance. During this hospitalization she was also found to have hypomagnesemia and hypokalemia. Urine culture was negative and in light of recent antibiotic use, antibiotics were stopped altogether. For concern of other causes of dysuria as well as for evaluation of right renal lesion, referral was made to urology. Dr. Cedeño agreed to see her in clinic for possible cystoscopy. He recommended going ahead with CT abdomen with contrast to evaluate the renal lesion. Regarding epigastric and LUQ pain, covering physician consulted surgery who recommended starting PPI and sucralfate. She is due to for surveillance colonoscopy soon so EGD could be planned at the same time. Additional details of her hospitalization follow. She was discharged in improved, stable condition. Hospital Course and Treatment * UTI: Resolved. Present on admit. Though she had tachycardia and mild tachypnea on admit, it was felt that sepsis was not present. Noted that urine culture was ultimately negative. Had already received PO antibiotics ( nitrofurantoin, Bactrim, and 1 dose of ciprofloxacin) prior to admit. On this admit, got only 1 dose of levofloxacin. In light of negative urine cultures, deferred further antibiotic at this time. * Right Renal Mass: 13 mm max dimension on CT scan. Indeterminate significance because of lack of contrast on CT scan. Refer to urologist for further evaluation. After discharge, check CT abdomen/pelvis with contrast. * Epigastric, LUQ Pain: Improving. Uncertain etiology. Does have some constipation. CT otherwise reassuring. Surgery consulted and EGD/colonoscopy recommended but this can be done in outpatient setting. Gave pantoprazole, sucralfate. Continued sucralfate at discharge and switched pantoprazole to omeprazole. * Nausea/Vomiting: Resolved. Gave ondansetron. * Hypomagnesemia: Mike 1.2. Improved with IV supplementation. * Hypokalemia: Mike 2.8. Improved with IV and PO supplement. * Constipation: Bowel regimen. CHRONIC ISSUES * Peripheral Neuropathy: Gabapentin * Diabetes Mellitus Type II: Glyburide, metformin, insulin glargine. * HTN: Losartan, HCTZ, metoprolol, diltiazem. Stopped diltiazem at discharge. Discharge Physicial Exam General Vital Signs Date Time Temp Pulse Resp B/P Pulse Ox O2 Delivery O2 Flow Rate FiO2 09/08/16 17:21 97.3 61 18 140/60 99 Room air GEN: Awake, interactive, oriented, NAD. HEENT: EOMI, clear sclerae, moist oral mucosa. CV: Regular without murmur. PULM: CTA B with no R/R/W. ABD: Soft, no apparent tenderness at this time. Hypoactive bowel sounds. EXTR: Trace ankle edema. INTEG: Age related changes. NEURO: No focal motor neuro deficit. Laboratory/Radiology Data Laboratory Results-14 Days 09/05/16 16:45: Alanine Aminotransferase (ALT/SGPT) 32, Albumin 4.4, Albumin/Globulin Ratio 1.692, Alkaline Phosphatase 60, Anion Gap 15.5H, Aspartate Amino Transf (AST/ SGOT) 19, BUN/Creatinine Ratio 16, Basophils # (Auto) 0.0, Basophils (%) (Auto) 0, Blood Urea Nitrogen 10, C-Reactive Protein < 0.50, Calcium Level 10.1, Calcium/Ionized Calcium Ratio 4.5, Calculated Osmolality 250L, Carbon Dioxide Level 24, Chloride Level 91L, Creatinine 0.62, Eosinophils # (Auto) 0.0, Eosinophils (%) (Auto) 1, Estimat Glomerular Filtration Rate 114.8, Estimated GFR (Non- 94.9, Glucose Level 172#H, Hematocrit 34.40L, Hemoglobin 12.4, Lipase 84, Lymphocytes # (Auto) 1.0, Lymphocytes (%) (Auto) 18L , Mean Corpuscular Hemoglobin 30.5, Mean Corpuscular Hemoglobin Concent 36.0, Mean Corpuscular Volume 85, Mean Platelet Volume 9.4, Monocytes # (Auto) 0.8, Monocytes (%) (Auto) 15H, Neutrophils # (Auto) 3.4, Neutrophils (%) (Auto) 65, Platelet Count 232, Potassium Level 3.3L, Red Blood Count 4.06, Red Cell Distribution Width 13.2, Sodium Level 127L, Total Bilirubin 0.7, Total Protein 7.0, White Blood Count 5.24 09/05/16 17:00: Urine Bacteria 1+, Urine Bilirubin Negative, Urine Blood Negative, Urine Clarity Clear, Urine Collection Type Catheter, Urine Color Yellow, Urine Glucose (UA) Negative, Urine Ketones 3+H, Urine Leukocyte Esterase TraceH, Urine Microscopic RBC 0-2, Urine Nitrite Negative, Urine Protein Negative, Urine Specific Curlew 1.010, Urine Squamous Epithelial Cells 2-5, Urine Urobilinogen 0.2, Urine WBC 2-5, Urine pH 7.0, Volume Urine Centrifuged <10ml unspun 09/06/16 05:00: Anion Gap 12.8, BUN/Creatinine Ratio 10, Basophils # (Auto) , Basophils (%) ( Auto) , Blood Urea Nitrogen 6L, Calcium Level 9.9, Carbon Dioxide Level 24, Chloride Level 106, Creatinine 0.60, Eosinophils # (Auto) , Eosinophils (%) ( Auto) , Estimat Glomerular Filtration Rate 119.2, Estimated GFR (Non- 98.6, Glucose Level 114#H, Hematocrit 33.70L, Hemoglobin 11.8L, Lymphocytes # (Auto) , Lymphocytes (%) (Auto) , Mean Corpuscular Hemoglobin 30.9 , Mean Corpuscular Hemoglobin Concent 35.0, Mean Corpuscular Volume 88, Mean Platelet Volume 9.8H, Monocytes # (Auto) , Monocytes (%) (Auto) , Neutrophils # (Auto) , Neutrophils (%) (Auto) , Platelet Count 232, Potassium Level 2.8L, Red Blood Count 3.82L, Red Cell Distribution Width 13.6, Sodium Level 140#, White Blood Count 5.01, Absolute Band Neutrophils 0.1, Band Neutrophils % 2, Basophils # (Manual) 0.0, Basophils % (Manual) 0, Blood Morphology Comment Normal, Differential Total Cells Counted 100, Eosinophils # 0.0, Eosinophils % ( Manual) 0, Lymphocytes # 1.7, Lymphocytes % (Manual) 33, Metamyelocytes % 0, Monocytes # 0.1, Monocytes % (Manual) 2L, Neutrophils # 3.2, Segmented Neutrophils % 63 09/06/16 09:50: Lactic Acid Level 1.8 09/07/16 08:45: Anion Gap 9.8, BUN/Creatinine Ratio 7L, Blood Urea Nitrogen 4L, Calcium Level 9.7, Carbon Dioxide Level 25, Chloride Level 108, Creatinine 0.54L, Estimat Glomerular Filtration Rate 134.7, Estimated GFR (Non- 111.3, Glucose Level 159#H, Potassium Level 2.8L, Sodium Level 140 09/07/16 20:03: Potassium Level 3.4#L, Magnesium Level 1.2*L 09/08/16 05:40: Anion Gap 10.4, Blood Urea Nitrogen 5L, Calcium Level 9.8, Carbon Dioxide Level 27, Chloride Level 107, Creatinine 0.56L, Estimat Glomerular Filtration Rate 129.1, Estimated GFR (Non- 106.7, Glucose Level 111#H, Potassium Level 3.8, Sodium Level 140, Magnesium Level 1.7#, Albumin 3.3#L, Phosphorus Level 2.3L MICRO 09/05 Blood culture Negative to date 09/05 Urine culture (cath) Negative to date 09/05 Urine culture (clean catch) Negative to date 09/05/16 CT ABDOMEN/PELVIS WO CLINICAL INDICATION: Patient with left lower quadrant abdominal pain and vomiting. EXAM: CT scan of the abdomen and pelvis performed without IV enteric contrast. Coronal and sagittal reformatted images are created. COMPARISON: X-ray of the abdomen dated 09/05/2016. FINDINGS: There is minimal atelectasis involving both lung bases. There are moderately hypertrophic spurs involving both acetabular regions. There is bony excrescence involving the left iliac which appears chronic. There are degenerative spurs of the lower thoracic and lumbar spine. There is lower lumbar spine facet arthropathy. The pancreas is atrophic with some fatty replacement seen. The gallbladder is not visualized and may be surgically resected. The liver, pancreas, and adrenal glands are unremarkable. There is a 13 mm partially exophytic high-density lesion involving the lateral and inferior aspect of the right kidney with Hounsfield units of 36. Both kidneys have lobulated contours. There is nonspecific calcification of the cortex region of the mid to upper left kidney. There are subtle low-density areas involving the left kidney. Cyst may be considered. There are no urinary tract stones. There is no hydronephrosis. There are postop changes with surgical anastomosis in the sigmoid colon low pelvis region. Otherwise, the colon, small bowel, and stomach show no significant abnormality. There is no intra-abdominal free air or free fluid. There is no significant abdominal lymphadenopathy or pelvic lymphadenopathy. The bladder is partially fluid distended with no gross abnormality seen. The uterus is surgically absent. The bilateral adnexal regions are atrophic with calcification seen in the region. There are phleboliths seen in the pelvis. The appendix is not visualized and may be surgically resected. The abdominal aorta is normal caliber with mild atherosclerotic disease. The extra-abdominal and extrapelvic soft tissue structures are unremarkable. Chronic-appearing compression deformity of the posterior upper endplate of the L1 vertebral body. IMPRESSION: 1: There is no CT evidence of acute abdominal or pelvic process. 2 : Indeterminate exophytic 13 mm right kidney lesion. There is also lobulated appearance of both kidneys with low-density areas within the left kidney. Nonemergent CT scan of both kidneys with contrast is suggested for further evaluation. If patient cannot have IV contrast, then MRI of the kidneys would better evaluate. 3: Atrophy of the pancreas. 4: Postop changes to the abdomen and pelvis region with no acute process. 09/05/16 ACUTE ABD SERIES CLINICAL INDICATION: Patient with abdominal pain. EXAMS: X-ray of the chest PA view and x-ray of the abdomen supine and upright views. COMPARISONS: None. FINDINGS: LUNGS/ PLEURA: Lungs are clear. There is no pneumothorax. There is no pleural effusion. MEDIASTINUM: Unremarkable. PULMONARY VASCULATURE: Unremarkable. HEART: Unremarkable. BONES/ EXTRATHORACIC SOFT TISSUE: There are hypertrophic spurs seen throughout the thoracic and lumbar spine. There are surgical clips overlying the bilateral axillary regions. There is lower cervical spine anterior disc fusion hardware seen. ABDOMEN AND PELVIS: Unremarkable x-ray of the abdomen with nonobstructed bowel gas pattern. There is no evidence of abdominal free air. There are no focal calcifications overlying the expected regions/ pathways of both kidneys, ureters , and bladder regions. IMPRESSION: 1: There is no radiographic evidence of acute cardiopulmonary process. 2: There is no radiographic evidence of acute abdominal or pelvic process. Discharge Disposition Discharged home in improved, stable condition. Instructions * You were evaluated and treated for possible recurrent urinary tract infection. You had a urine culture that grew no bacteria. You already took oral antibiotic prior to admit and you received 1 IV dose of levofloxacin in ED on this admit. It is felt that based on your negative urine culture result, no further antibiotic is needed at this time. For further evaluation of your bladder, you have been referred to the urologist. Keep that appointment as scheduled. * You had upper abdominal pain that could be related to ulcer or some other stomach problem. You improved with sucralfate and with pantoprazole. Continue these at discharge and follow-up with Dr. Franco as scheduled for planning of EGD (upper endoscopy) as well as scheduled your surveillance colonoscopy for history of colon cancer. * In case of recurrent nausea, a short-course of promethazine has been prescribed. Review the provided handout for details. * You had low potassium and low magnesium but these improved with IV supplement. * You have been taking 4 different drugs to help control your blood pressure. It is felt that this can be reduced to just 3. For now, stop taking diltiazem and follow-up with your primary care doctor regarding your blood pressure. Activity Instructions As tolerated. Appointments Follow-up with your primary care doctor in 3-5 days. Keep your appointments with Dr. Cedeño and Dr. Franco as scheduled. Discharge Diet: Heart Healthy Discharge Medications New Medications: Acetaminophen (Acetaminophen) 325 Mg Tablet 650 MG PO Q6H PRN PAIN #0 Ref 0 TAB Sucralfate (Sucralfate) 1 Gm Tablet 1 GM PO ACHS #120 Ref 0 TAB Continued Medications: Gabapentin (Gabapentin) 800 Mg Tablet 800 MG PO DAILY@0800,1200 Gabapentin (Gabapentin) 800 Mg Tablet 1600 MG PO HS TAB Glyburide (Glyburide) 5 Mg Tablet 10 MG PO BID WITH MEALS Insulin Glargine,Hum.rec.anlog (Basaglar Kwikpen U-100) 100 Unit/1 Ml Insuln.pen 40 UNITS SQ HS Losartan/Hydrochlorothiazide (Losartan-HCTZ 100-25 mg Tab) 1 Each Tablet 1 TAB PO DAILY Metformin HCl (Metformin HCl) 1,000 Mg Tablet 1000 MG PO BID WITH MEALS Metoprolol Tartrate (Metoprolol Tartrate) 50 Mg Tablet 50 MG PO BID Omeprazole (Omeprazole) 20 Mg Capsule.dr 20 MG PO DAILY Ondansetron HCl (Ondansetron HCl) 4 Mg Tablet 4 MG PO Q4H PRN NAUSEA #10 Pentoxifylline (Pentoxifylline) 400 Mg Tablet.er 400 MG PO TID Potassium Chloride (Potassium Chloride) 8 Meq Tablet.er 8 MEQ PO DAILY Ranitidine HCl (Ranitidine HCl) 150 Mg Tablet 150 MG PO DAILY Simvastatin (Simvastatin) 10 Mg Tablet 10 MG PO HS Zolpidem Tartrate (Zolpidem Tartrate) 5 Mg Tablet 5 MG PO HS Discontinued Medications: Ciprofloxacin HCl (Cipro) 500 Mg Tablet 500 MG PO DAILY #5 Diltiazem HCl (Cartia XT) 240 Mg Cap.er.24h 240 MG PO DAILY Follow up Follow up Referrals: Physician Referral - 09/22/16 with Sree Franco Md, Dr.'s office may contact you with a new appointment date and time. Otherwise, keep this date and time as scheduled. Physician Referral - 10/13/16 with Jase Cedeño MD New Orders: CT ABDOMEN W WO/PELVIS W - Within 1 week Discharge Diagnosis See list above. Problems: Copies to: Additional Provider: Jase Cedeño MD End of Report . CHRISSY LOPEZ MD September 09, 2016 11:21
== END 2016-09-08 18:40 | disposition home or self-care (01) | DRG 690 ==
LOC: ED 16:10 → MED/SURG 20:37
PROVIDERS: ADMIT Internal Medicine; ATTEND Internal Medicine
DX: N39.0 Urinary tract infection, site not specified (principal); E87.6 Hypokalemia; E83.42 Hypomagnesemia; E86.0 Dehydration; R10.84 Generalized abdominal pain; I10 Essential (primary) hypertension; E78.5 Hyperlipidemia, unspecified; I48.91 Unspecified atrial fibrillation; K59.00 Constipation, unspecified; N28.89 Other specified disorders of kidney and ureter; E11.42 Type 2 diabetes mellitus with diabetic polyneuropathy; R00.0 Tachycardia, unspecified; Z79.4 Long term (current) use of insulin; Z92.21 Personal history of antineoplastic chemotherapy; Z92.3 Personal history of irradiation; Z85.038 Personal history of other malignant neoplasm of large intestine; Z85.3 Personal history of malignant neoplasm of breast
CPT/HCPCS: 36415; 74022; 74176; 80048; 80053; 80069; 81003; 81015; 83605; 83690; 83735; 84132; 85025; 86140; 87040; 87088; 96374; 96375; 96376; 99284; 99285

== ENCOUNTER → 2016-09-05 | Outpatient (REF) | payer MEDICARE, BC ==
[2016-09-05 15:31] LABS: BILIRUBIN,URINE Negative (Negative); CLARITY,URINE Clear; COLOR,URINE Yellow; GLUCOSE, URINE (UA) Trace (Negative); LEUKOCYTE ESTERASE ,URINE Trace (Negative); UROBILINOGEN,URINE 0.2 mg/dL (0.2-1.0)
[2016-09-05 16:01] LABS: URINE CENTRIFUGED VOLUME 12 mL
== END ==
LOC: LAB 15:24
PROVIDERS: ATTEND Physician Assistant Surgical
DX: R30.0 Dysuria (principal)
CPT/HCPCS: 81003; 81015; 87088

== ENCOUNTER → 2016-09-12 | Outpatient (REF) | payer MEDICARE, BC ==
[~2016-09-12] MED LIST changes: +AC325T PO; +CPR500T PO; +DILT240C53 PO; +GABA800T2 PO; +GLYB5TAB6 PO; +HYDR-3811 PO; +INSU100I35 SQ; +LOSA1TAB70 PO; +METF1000 PO; +MTP50T PO; +OMEP20CA12 PO; +ONDA-50 PO; +PENT400T2 PO; +POTA8TAB6 PO; +RANI150T11 PO; +SCR1T1 PO; +SMV10T PO; +ZLP5T PO
[2016-09-12 14:30] LABS: ANION GAP 14.8 MEQ/L (3-15)
[2016-09-12 14:45] LABS: MAGNESIUM* 1.3 mg/dL (1.6-2.3)
== END ==
LOC: LAB 13:00
PROVIDERS: ATTEND Family Medicine
DX: E87.6 Hypokalemia (principal); E83.42 Hypomagnesemia
CPT/HCPCS: 80048; 83735

== ENCOUNTER → 2016-09-16 | Outpatient (REF) | payer MEDICARE, BC ==
[2016-09-16 09:49] LABS: BASOPHILS % (AUTO) 0 % (0-2); EOSINOPHILS % (AUTO) 0 % (0-4); LYMPHOCYTES # (AUTO) 1.3 X10^3; MEAN CORPUSCULAR HEMOGLOBIN 30.8 PG (26.0-34.0); MEAN CORPUSCULAR HGB CONC 35.9 g/dL (31.0-37.0); MEAN CORPUSCULAR VOLUME 86 FL (80-100); MONOCYTES # (AUTO) 0.9 X10^3; MONOCYTES % (AUTO) 13 % (3-11); NEUTROPHILS # (AUTO) 4.2 X10^3; NEUTROPHILS % (AUTO) 66 % (51-67); PLATELET COUNT 258 10^3uL (150-450); WHITE BLOOD COUNT 6.44 10^3uL (4.0-11.0)
[2016-09-16 09:56] LABS: ALBUMIN 4.4 g/dL (3.4-5.0); CALCULATED IONIZED CALCIUM 4.6 mg/dL (3.8-4.6); TOTAL PROTEIN 7.1 g/dL (6.4-8.5)
== END ==
LOC: LAB 09:45
PROVIDERS: ATTEND Nurse Practitioner Family
DX: R10.84 Generalized abdominal pain (principal)
CPT/HCPCS: 80053; 82150; 83690; 85025